=== PATIENT | male | born 1975 | race Caucasian/White ===

== ENCOUNTER 2017-07-12 13:58 | Inpatient (IN) | payer OTHER ==
[2017-07-12 16:41] VITALS: BMI 31.3
--- NOTE | 2017-07-12 17:46 | HP ---
COWS - Scale Resting Pulse: 1= IN 81-100 Sweatin= Chills/Flushing Restless Observation: 1= Difficult to Sit Still Pupil Size: 1= Pupils >than Normal Bone or Joint Aches: 1= Mild Discomfort Runny Nose/ Eye Tearin= Runny Nose/Eyes GI Upset > 30mins: 2= Nausea/Diarrhea Tremor Observation: 2= Slight Tremor Visible Yawning Observation: 1= 1-2x During Session Anxiety or Irritability: 1=Feels Anxious/Irritable Goose Flesh Skin: 0=Smooth Skin COWS Score: 13 CIWA Score - CIWA Score Nausea/Vomitin-Mild Nausea/No Vomiting Muscle Tremors: 4-Moderate,w/Arms Extend Anxiety: 3 Agitation: 3 Paroxysmal Sweats: 1-Minimal Palms Moist Orientation: 0-Oriented Tacttile Disturbances: 1-Very Mild Itch/Numbness Auditory Disturbances: 0-None Visual Disturbances: 0-None Headache: 0-None Present CIWA-Ar Total Score: 13 Admission ROS S - HPI Chief Complaint: Having heroin and alcohol withdrawal symptoms. Allergies/Adverse Reactions: Allergies Allergy/AdvReac Type Severity Reaction Status Date / Time No Known Allergies Allergy Verified 07/12/17 16:55 History of Present Illness: 42 y.o.m. here for detox from heroin and alcohol. Heroin use via IV and intranasal. Last detox 8 years ago and has been using continuously for past 3-4 years. Hx. auditory and visual hallucinations. Denies hx. black outs or seizures. Exam Limitations: No Limitations - Ebola screening Have you traveled outside of the country in the last 21 days: No Have you had contact with anyone from an Ebola affected area: No Have you been sick,other than usual withdrawal symptoms: No Do you have a fever: No - Review of Systems Constitutional: No Symptoms Reported, See HPI EENT: reports: Nose Congestion Respiratory: reports: No Symptoms reported Cardiac: reports: No Symptoms Reported GI: reports: Nausea, Abdominal cramping : reports: No Symptoms Reported Musculoskeletal: reports: No Symptoms Reported Integumentary: reports: No Symptoms Reported Neuro: reports: No Symptoms reported Endocrine: reports: No Symptoms Reported Hematology: reports: No Symptoms Reported Psychiatric: reports: Orientated x3, Agitated, Anxious (Past hx suicide attempt 10 years ago. Denies current thoughts of suicide or violent ideation.), other ( Hx bipolar disease. Hx.) Patient History - Patient Medical History Hx Anemia: No Hx Asthma: No Hx Chronic Obstructive Pulmonary Disease (COPD): No Hx Cancer: No Hx Cardiac Disorders: No Hx Congestive Heart Failure: No Hx Hypertension: No Hx Hypercholesterolemia: No Hx Pacemaker: No HX Cerebrovascular Accident: No Hx Seizures: No Hx Dementia: No Hx Diabetes: No Hx Gastrointestinal Disorders: No Hx Liver Disease: No Hx Genitourinary Disorders: No Hx Sexually Transmitted Disorders: No Hx Renal Disease (ESRD): No Hx Thyroid Disease: No Hx Human Immunodeficiency Virus (HIV): No Hx Hepatitis C: Yes Hx Depression: Yes Hx Suicide Attempt: No Hx Bipolar Disorder: Yes (Denies current thoughts of suicide or violent ideation. ) Hx Schizophrenia: No - Patient Surgical History Past Surgical History: No Hx Neurologic Surgery: No Hx Cataract Extraction: No Hx Cardiac Surgery: No Hx Lung Surgery: No Hx Breast Surgery: No Hx Breast Biopsy: No Hx Abdominal Surgery: No Hx Appendectomy: No Hx Cholecystectomy: No Hx Genitourinary Surgery: No Hx Section: No Hx Orthopedic Surgery: No Anesthesia Reaction: No - PPD History Previous Implant?: Yes Documented Results: Negative w/o proof PPD to be Administered?: Yes - Reproductive History Patient is a Female of Child Bearing Age (11 -55 yrs old): No - Smoking Cessation Smoking history: Current every day smoker Have you smoked in the past 12 months: Yes Aproximately how many cigarettes per day: 10 Hx Chewing Tobacco Use: No Initiated information on smoking cessation: Yes 'Breaking Loose' booklet given: 07/12/17 - Substance & Tx. History Hx Alcohol Use: Yes (Drinks 1-2 pints vodka daily.) Hx Substance Use: Yes Substance Use Type: Alcohol, Heroin Hx Substance Use Treatment: Yes - Substances Abused Heroin Route: Injection Frequency: Daily Amount used: 3 bags Age of first use: 24 Date of Last Use: 07/12/17 Cocaine Date of Last Use: 07/12/17 Family Disease History - Family Disease History Family Disease History: Diabetes: Father, Heart Disease: Mother Other Family History: Brother used heroin. Admission Physical Exam BHS - Vital Signs Vital Signs: Vital Signs - 24 hr 07/12/17 16:39 Temperature 97.4 F L Pulse Rate 84 Respiratory 18 Rate Blood Pressure 129/57 - Physical General Appearance: Yes: Appropriately Dressed, Mild Distress, Tremorous, Irritable, Sweating, Anxious HEENTM: Yes: Hearing grossly Normal, Normocephalic, Normal Voice, JUMANA Respiratory: Yes: Within Normal Limits, Chest Non-Tender, Normal Breath Sounds Neck: Yes: Within Normal Limits Breast: Yes: Breast Exam Deferred Cardiology: Yes: Within Normal Limits, Regular Rhythm, Regular Rate Abdominal: Yes: Within Normal Limits, Normal Bowel Sounds Genitourinary: Yes: Within Normal Limits Back: Yes: Within Normal Limits Musculoskeletal: Yes: Within Normal Limits Extremities: Yes: Within Normal Limits, Normal Range of Motion Neurological: Yes: Within Normal Limits Integumentary: Yes: Track Vargas (Track vargas antecubital areas.), Other (Healed burn lesions on (R) thumb and (R) ring finger) - Diagnostic (1) Opiate withdrawal Current Visit: Yes Status: Acute (2) Alcohol withdrawal Current Visit: Yes Status: Acute Qualifiers: Complication of substance-induced condition: uncomplicated Qualified Code(s ): F10.230 - Alcohol dependence with withdrawal, uncomplicated (3) Nicotine dependence Current Visit: Yes Status: Acute Qualifiers: Nicotine product type: cigarettes Substance use status: uncomplicated Qualified Code(s): F17.210 - Nicotine dependence, cigarettes, uncomplicated (4) Hepatitis C Current Visit: Yes Status: Chronic Comment: No treatment history (5) Bipolar disorder, unspecified Current Visit: Yes Status: Chronic Qualifiers: Current episode severity: unspecified Cleared for Admission [facility] - Detox or Rehab [facility] Level of Care: Medically Managed Detox Regimen/Protocol: Methadone/Librium [facility] Breath Alcohol Content Breath Alcohol Content: 0 Urine Drug Screen - Results Drug Screen Negative: No Urine Drug Screen Results: OPI-Opiates
[2017-07-12] MEDS ORDERED: guaiFENesin/D-METHORPHAN HB 10 ML UNIT-DOSE CUPS PO PRN (18:32)
[2017-07-12] MEDS ORDERED: MAGNESIUM HYDROX 2400MG/30ML ORAL SUSPENSION 30 ML CUP PO PRN (18:32)
[2017-07-12] MEDS ORDERED: MENTHOL/PHENOL 1 EACH UD MM PRN (18:32)
[2017-07-12] MEDS ORDERED: LOPERAMIDE HCL 2 MG CAPSULE PO PRN (18:32)
[2017-07-12] MEDS ORDERED: ACETAMINOPHEN 325 MG TABLET (FP) PO PRN (18:32)
[2017-07-12] MEDS ORDERED: chlordiazePOXIDE HCL 25 MG CAPSULE PO PRN (18:32)
[2017-07-12] MEDS ORDERED: IBUPROFEN 400 MG TABLET (FP) PO PRN (18:32)
[2017-07-12] MEDS ORDERED: P-EPHED 60MG/TRIPROLIDI 2.5MG TABLET PO PRN (18:32)
[2017-07-12] MEDS ORDERED: MAGNESIUM CITRATE 300 ML BOTTLE PO PRN (18:32)
[2017-07-12] MEDS ORDERED: NICOTINE POLACRILEX 2 MG GUM BUC PRN (18:36)
[2017-07-12] MEDS ORDERED: METHADONE HCL 10 MG TABLET (FOR DETOX USE ONLY) PO ONE ×2 (19:00→23:00)
[2017-07-12] MEDS ORDERED: MELATONIN 5 MG TABLETS PO PRN (22:00)
[2017-07-12] MEDS: THIAMINE HCL 100 MG TABLET (FP) PO SCH (22:12)
[2017-07-12] MEDS: chlordiazePOXIDE HCL 25 MG CAPSULE PO SCH (22:12)
[2017-07-12 22:42] LABS: URINE APPEARANCE SLCLOUDY; URINE BILIRUBIN NEGATIVE (<2.0 mg/dL); URINE BLOOD NEGATIVE (NEGATIVE); URINE COLOR AMBER; URINE GLUCOSE (UA) NEGATIVE (NEGATIVE); URINE KETONE NEGATIVE (NEGATIVE); URINE LEUK ESTERASE NEGATIVE (NEGATIVE); URINE NITRITE NEGATIVE (NEGATIVE); URINE PROTEIN NEGATIVE (NEGATIVE); URINE UROBILINOGEN 4.0 E.U/dl mg/dL (0.2-1.0)
[2017-07-13] MEDS: chlordiazePOXIDE HCL 25 MG CAPSULE PO SCH ×4 (05:35→22:58)
[2017-07-13] MEDS ORDERED: METHADONE HCL 10 MG TABLET (FOR DETOX USE ONLY) PO SCH (10:00)
[2017-07-13] MEDS: PRENATAL VITAMINS W/ FOLIC ACID TABLET (FP) PO SCH (10:06)
[2017-07-13] MEDS: NICOTINE 14 MG/24 HOURS TOPICAL PATCH TD SCH (10:06)
[2017-07-13 10:24] LABS: HEMATOCRIT 37.1 % (35.4-49); HEMOGLOBIN 12.5 GM/dL (11.7-16.9); MCH 30.3 pg (25.7-33.7); MCHC 33.8 g/dl (32.0-35.9); MEAN CELL VOLUME 89.6 fl (80-96); MEAN PLT VOLUME 8.7 fl (7.5-11.1); PLATELET COUNT 171 K/MM3 (134-434); RBC 4.14 M/mm3 (4.00-5.60); RDW 15.9 % (11.9-15.9); WHITE BLOOD COUNT 6.9 K/mm3 (4.0-10.0)
--- NOTE | 2017-07-13 10:26 | EKG ---
Test Reason : Blood Pressure : / mmHG Vent. Rate : 059 BPM Atrial Rate : 059 BPM P-R Int : 150 ms QRS Dur : 092 ms QT Int : 404 ms P-R-T Axes : 004 012 055 degrees QTc Int : 399 ms SINUS BRADYCARDIA OTHERWISE NORMAL ECG NO PREVIOUS ECGS AVAILABLE Confirmed by MD ANDREY, NKECHI ([id number]) on 07/13/2017 10:25:36 AM Referred By: Confirmed By:NKECHI BALDERAS MD
[2017-07-13 11:12] LABS: CHLORIDE 110 mmol/L (98-107); POTASSIUM 4.4 mmol/L (3.5-5.1); SODIUM 143 mmol/L (136-145)
[2017-07-13 11:21] LABS: ALBUMIN 3.1 g/dl (3.4-5.0); ALK PHOS 78 U/L (45-117); ANION GAP 3 (8-16); BILIRUBIN,TOTAL 0.4 mg/dL (0.2-1.0); BLOOD UREA NITROGEN 19 mg/dL (7-18); CALCIUM 8.3 mg/dL (8.5-10.1); CO2 30 mmol/L (21-32); CREATININE 0.8 mg/dL (0.7-1.3); GLUCOSE,RANDOM 75 mg/dL (74-106); SGOT/AST 17 U/L (15-37); SGPT/ALT 27 U/L (12-78); TOT PROT 6.4 g/dl (6.4-8.2)
--- NOTE | 2017-07-13 12:37 | PN ---
S CIWA - CIWA Score Nausea/Vomitin-No Nausea/No Vomiting Muscle Tremors: 3 Anxiety: 4-Mod. Anxious/Guarded Agitation: 3 Paroxysmal Sweats: No Perspiration Orientation: 2-Disoriented Date<2 days Tacttile Disturbances: 2-Mild Itch/Numbness/Burn Auditory Disturbances: 2-Mild Harshness/Frighten Visual Disturbances: 2-Mild Sensitivity Headache: 0-None Present CIWA-Ar Total Score: 18 BHS COWS - Scale Resting Pulse: 0= NC 80 or Below Sweatin= Chills/Flushing Restless Observation: 1= Difficult to Sit Still Pupil Size: 0= Normal to Room Light Bone or Joint Aches: 0= None Runny Nose/ Eye Tearin= Nasal Congestion GI Upset > 30mins: 1= Stomach Cramp Tremor Observation of Outstretched Hands: 0= None Yawning Observation: 2= >3x During Session Anxiety or Irritability: 2=Irritable/Anxious Goose Flesh Skin: 3=Piloerection COWS Score: 11 S Progress Note (SOAP) Subjective: Anxious, Stomach Cramping, Fatigue, Tremors. Objective: PATIENT A & O X 2 (UNCERTAIN ABOUT CURRENT DAY / DATE). PATIENT OBSERVED AMBULATING ON UNIT. NO ACUTE DISTRESS. 07/13/17 12:36 Vital Signs Temperature 96.8 F L 07/13/17 09:06 Pulse Rate 70 07/13/17 09:06 Respiratory Rate 18 07/13/17 09:06 Blood Pressure 101/70 07/13/17 09:06 O2 Sat by Pulse Oximetry (%) Laboratory Tests 07/12/17 07/13/17 07/13/17 19:37 07:30 07:30 WBC 6.9 RBC 4.14 Hgb 12.5 Hct 37.1 MCV 89.6 MCH 30.3 MCHC 33.8 RDW 15.9 Plt Count 171 MPV 8.7 Sodium Potassium Chloride Carbon Dioxide Anion Gap BUN Creatinine Creat Clearance w eGFR Random Glucose Calcium Total Bilirubin AST ALT Alkaline Phosphatase Total Protein Albumin Urine Color Lauren Urine Appearance Slcloudy Urine pH 5.0 Ur Specific [place] 1.029 Urine Protein Negative Urine Glucose (UA) Negative Urine Ketones Negative Urine Blood Negative Urine Nitrite Negative Urine Bilirubin Negative Urine Urobilinogen 4.0 e.u/dl Ur Leukocyte Esterase Negative RPR Titer HIV 1&2 Antibody Screen Negative HIV P24 Antigen Negative 07/13/17 07/13/17 07:30 07:30 WBC RBC Hgb Hct MCV MCH MCHC RDW Plt Count MPV Sodium 143 Potassium 4.4 Chloride 110 H Carbon Dioxide 30 Anion Gap 3 L BUN 19 H Creatinine 0.8 Creat Clearance w eGFR > 60 Random Glucose 75 Calcium 8.3 L Total Bilirubin 0.4 AST 17 ALT 27 Alkaline Phosphatase 78 Total Protein 6.4 Albumin 3.1 L Urine Color Urine Appearance Urine pH Ur Specific [place] Urine Protein Urine Glucose (UA) Urine Ketones Urine Blood Urine Nitrite Urine Bilirubin Urine Urobilinogen Ur Leukocyte Esterase RPR Titer Nonreactive HIV 1&2 Antibody Screen HIV P24 Antigen LABS NOTED. Assessment: 07/13/17 12:37 WITHDRAWAL SYMPTOMS. Plan: CONTINUE DETOX.
--- NOTE | 2017-07-13 13:05 | CONSULT ---
[facility] Psychiatric Consult - Data Date of interview: 07/13/17 Admission source: [facility] Identifying data: First admission to [facility] for this 42 y/o [place] male seeking detox treatment on for alcohol and heroin dependence.Patient is single without children,homeless,unemployed and supported on SSI benefits. Substance Abuse History: Confirmed by patient in this interview.Details in current [facility] report : Smoking history: Current every day smoker. Have you smoked in the past 12 months: Yes. Aproximately how many cigarettes per day: 10. Hx Chewing Tobacco Use: No. Initiated information on smoking cessation: Yes. 'Breaking Loose' booklet given: 07/12/17. - Substance & Tx. History. Hx Alcohol Use: Yes (Drinks 1-2 pints vodka daily.). Hx Substance Use: Yes. Substance Use Type: Alcohol, Heroin. Hx Substance Use Treatment: Yes. - Substances Abused. Heroin. Route: Injection. Frequency: Daily. Amount used: 3 bags. Age of first use: 24. Date of Last Use: 07/12/17. Cocaine. Date of Last Use: 07/12/17 Medical History: Hepatitis C. Psychiatric History: Diagnosed with Bipolar Disorder.Patient admits to a histroy of multiple psychiatric hospitalizations ([facility]).Mr Valenzuela declares that he used to be on invega and bupropion.No recall of date of last medication intake.Patient states that he has not taken his medications for " a long time ", since he was discharged from the [facility] (?) program in the [place].Denies history of suicide attempts. Physical/Sexual Abuse/Trauma History: Patient denies. Additional Comment: Urine Drug Screen Results: OPI-Opiates.Noted. Mental Status Exam - Mental Status Exam Alert and Oriented to: Time, Place, Person Cognitive Function: Grossly Intact Patient Appearance: Unkempt, Disheveled Mood: Nervous, Anxious Affect: Mood Congruent Patient Behavior: Talkative, Cooperative Speech Pattern: Clear (patient is more comfortable in irish ; loquacious) Voice Loudness: Normal Thought Process: Goal Oriented Thought Disorder: Bizarre Hallucinations: Denies Suicidal Ideation: Denies Homicidal Ideation: Denies Insight/Judgement: Poor Sleep: Well Appetite: Good Muscle strength/Tone: Normal Gait/Station: Normal Psychiatric Findings - Problem List ([place] 1, 2,3) (1) Opiate withdrawal Current Visit: Yes Status: Acute (2) Alcohol withdrawal Current Visit: Yes Status: Acute Qualifiers: Complication of substance-induced condition: uncomplicated Qualified Code(s ): F10.230 - Alcohol dependence with withdrawal, uncomplicated (3) Nicotine dependence Current Visit: Yes Status: Acute Qualifiers: Nicotine product type: cigarettes Substance use status: uncomplicated Qualified Code(s): F17.210 - Nicotine dependence, cigarettes, uncomplicated (4) Substance induced mood disorder Current Visit: Yes Status: Acute (5) Bipolar disorder Current Visit: Yes Status: Chronic Comment: As per self-report. - Initial Treatment Plan Initial Treatment Plan: Psychoeducation.Detoxification in progress.No pharmacy claims for review.No pharmacy on file.Observation.
[2017-07-13] MEDS: MAG HYDROX/AL HYDROX/SIMETH 30 ML UNIT-DOSE CUP PO PRN (18:34)
[2017-07-13] MEDS: THIAMINE HCL 100 MG TABLET (FP) PO SCH (22:58)
[2017-07-14] MEDS: chlordiazePOXIDE HCL 25 MG CAPSULE PO SCH ×3 (05:00→17:35)
[2017-07-14] MEDS: MAG HYDROX/AL HYDROX/SIMETH 30 ML UNIT-DOSE CUP PO PRN (05:01)
[2017-07-14] MEDS: METHADONE HCL 5 MG TABLET (FOR DETOX USE ONLY) PO SCH (10:15)
[2017-07-14] MEDS: NICOTINE 14 MG/24 HOURS TOPICAL PATCH TD SCH (10:15)
[2017-07-14] MEDS: PRENATAL VITAMINS W/ FOLIC ACID TABLET (FP) PO SCH (10:15)
--- NOTE | 2017-07-14 13:00 | PN ---
[facility] CIWA - CIWA Score Nausea/Vomitin-No Nausea/No Vomiting Muscle Tremors: 3 Anxiety: 4-Mod. Anxious/Guarded Agitation: 4-Moderately Restless Paroxysmal Sweats: 1-Minimal Palms Moist Orientation: 0-Oriented Tacttile Disturbances: 0-None Auditory Disturbances: 0-None Visual Disturbances: 0-None Headache: 0-None Present CIWA-Ar Total Score: 12 BHS Progress Note (SOAP) Subjective: ANXIETY,FATIGUE. Objective: 07/14/17 12:59 Vital Signs Temperature 97.4 F L 07/14/17 09:49 Pulse Rate 67 07/14/17 09:49 Respiratory Rate 20 07/14/17 09:49 Blood Pressure 118/66 07/14/17 09:49 O2 Sat by Pulse Oximetry (%) Laboratory Last Values WBC 6.9 K/mm3 (4.0-10.0) 07/13/17 07:30 RBC 4.14 M/mm3 (4.00-5.60) 07/13/17 07:30 Hgb 12.5 GM/dL (11.7-16.9) 07/13/17 07:30 Hct 37.1 % (35.4-49) 07/13/17 07:30 MCV 89.6 fl (80-96) 07/13/17 07:30 MCH 30.3 pg (25.7-33.7) 07/13/17 07:30 MCHC 33.8 g/dl (32.0-35.9) 07/13/17 07:30 RDW 15.9 % (11.9-15.9) 07/13/17 07:30 Plt Count 171 K/MM3 (134-434) 07/13/17 07:30 MPV 8.7 fl (7.5-11.1) 07/13/17 07:30 Sodium 143 mmol/L (136-145) 07/13/17 07:30 Potassium 4.4 mmol/L (3.5-5.1) 07/13/17 07:30 Chloride 110 mmol/L (98-107) H 07/13/17 07:30 Carbon Dioxide 30 mmol/L (21-32) 07/13/17 07:30 Anion Gap 3 (8-16) L 07/13/17 07:30 BUN 19 mg/dL (7-18) H 07/13/17 07:30 Creatinine 0.8 mg/dL (0.7-1.3) 07/13/17 07:30 Creat Clearance w eGFR > 60 (>60) 07/13/17 07:30 Random Glucose 75 mg/dL (74-106) 07/13/17 07:30 Calcium 8.3 mg/dL (8.5-10.1) L 07/13/17 07:30 Total Bilirubin 0.4 mg/dL (0.2-1.0) 07/13/17 07:30 AST 17 U/L (15-37) 07/13/17 07:30 ALT 27 U/L (12-78) 07/13/17 07:30 Alkaline Phosphatase 78 U/L (45-117) 07/13/17 07:30 Total Protein 6.4 g/dl (6.4-8.2) 07/13/17 07:30 Albumin 3.1 g/dl (3.4-5.0) L 07/13/17 07:30 Urine Color Lauren 07/12/17 19:37 Urine Appearance Slcloudy 07/12/17 19:37 Urine pH 5.0 (5.0-8.0) 07/12/17 19:37 Ur Specific [place] 1.029 (1.001-1.035) 07/12/17 19:37 Urine Protein Negative (NEGATIVE) 07/12/17 19:37 Urine Glucose (UA) Negative (NEGATIVE) 07/12/17 19:37 Urine Ketones Negative (NEGATIVE) 07/12/17 19:37 Urine Blood Negative (NEGATIVE) 07/12/17 19:37 Urine Nitrite Negative (NEGATIVE) 07/12/17 19:37 Urine Bilirubin Negative (<2.0 mg/dL) 07/12/17 19:37 Urine Urobilinogen 4.0 e.u/dl mg/dL (0.2-1.0) 07/12/17 19:37 Ur Leukocyte Esterase Negative (NEGATIVE) 07/12/17 19:37 RPR Titer Nonreactive (NONREACTIVE) 07/13/17 07:30 HIV 1&2 Antibody Screen Negative 07/13/17 07:30 HIV P24 Antigen Negative 07/13/17 07:30 Assessment: 07/14/17 13:00 WITHDRAWAL SX Plan: CONTINUE DETOX
[2017-07-14] MEDS: THIAMINE HCL 100 MG TABLET (FP) PO SCH (22:43)
[2017-07-14] MEDS: chlordiazePOXIDE 5 MG CAPSULE PO SCH (22:43)
[2017-07-15] MEDS: chlordiazePOXIDE 5 MG CAPSULE PO SCH ×3 (05:14→17:02)
[2017-07-15] MEDS: PRENATAL VITAMINS W/ FOLIC ACID TABLET (FP) PO SCH (10:08)
[2017-07-15] MEDS: METHADONE HCL 5 MG TABLET (FOR DETOX USE ONLY) PO SCH (10:08)
[2017-07-15] MEDS: NICOTINE 14 MG/24 HOURS TOPICAL PATCH TD SCH (10:08)
--- NOTE | 2017-07-15 13:39 | PN ---
BHS Progress Note (SOAP) Subjective: ANXIETY, SWEATS, FATIGUE. Objective: 07/15/17 13:38 Vital Signs Temperature 97.1 F L 07/15/17 13:32 Pulse Rate 72 07/15/17 13:32 Respiratory Rate 18 07/15/17 13:32 Blood Pressure 117/67 07/15/17 13:32 O2 Sat by Pulse Oximetry (%) Laboratory Last Values WBC 6.9 K/mm3 (4.0-10.0) 07/13/17 07:30 RBC 4.14 M/mm3 (4.00-5.60) 07/13/17 07:30 Hgb 12.5 GM/dL (11.7-16.9) 07/13/17 07:30 Hct 37.1 % (35.4-49) 07/13/17 07:30 MCV 89.6 fl (80-96) 07/13/17 07:30 MCH 30.3 pg (25.7-33.7) 07/13/17 07:30 MCHC 33.8 g/dl (32.0-35.9) 07/13/17 07:30 RDW 15.9 % (11.9-15.9) 07/13/17 07:30 Plt Count 171 K/MM3 (134-434) 07/13/17 07:30 MPV 8.7 fl (7.5-11.1) 07/13/17 07:30 Sodium 143 mmol/L (136-145) 07/13/17 07:30 Potassium 4.4 mmol/L (3.5-5.1) 07/13/17 07:30 Chloride 110 mmol/L (98-107) H 07/13/17 07:30 Carbon Dioxide 30 mmol/L (21-32) 07/13/17 07:30 Anion Gap 3 (8-16) L 07/13/17 07:30 BUN 19 mg/dL (7-18) H 07/13/17 07:30 Creatinine 0.8 mg/dL (0.7-1.3) 07/13/17 07:30 Creat Clearance w eGFR > 60 (>60) 07/13/17 07:30 Random Glucose 75 mg/dL (74-106) 07/13/17 07:30 Calcium 8.3 mg/dL (8.5-10.1) L 07/13/17 07:30 Total Bilirubin 0.4 mg/dL (0.2-1.0) 07/13/17 07:30 AST 17 U/L (15-37) 07/13/17 07:30 ALT 27 U/L (12-78) 07/13/17 07:30 Alkaline Phosphatase 78 U/L (45-117) 07/13/17 07:30 Total Protein 6.4 g/dl (6.4-8.2) 07/13/17 07:30 Albumin 3.1 g/dl (3.4-5.0) L 07/13/17 07:30 Urine Color Lauren 07/12/17 19:37 Urine Appearance Slcloudy 07/12/17 19:37 Urine pH 5.0 (5.0-8.0) 07/12/17 19:37 Ur Specific [place] 1.029 (1.001-1.035) 07/12/17 19:37 Urine Protein Negative (NEGATIVE) 07/12/17 19:37 Urine Glucose (UA) Negative (NEGATIVE) 07/12/17 19:37 Urine Ketones Negative (NEGATIVE) 07/12/17 19:37 Urine Blood Negative (NEGATIVE) 07/12/17 19:37 Urine Nitrite Negative (NEGATIVE) 07/12/17 19:37 Urine Bilirubin Negative (<2.0 mg/dL) 07/12/17 19:37 Urine Urobilinogen 4.0 e.u/dl mg/dL (0.2-1.0) 07/12/17 19:37 Ur Leukocyte Esterase Negative (NEGATIVE) 07/12/17 19:37 RPR Titer Nonreactive (NONREACTIVE) 07/13/17 07:30 HIV 1&2 Antibody Screen Negative 07/13/17 07:30 HIV P24 Antigen Negative 07/13/17 07:30 Assessment: 07/15/17 13:39 WITHDRAWAL SX Plan: CONTINUE DETOX
[2017-07-15] MEDS: chlordiazePOXIDE HCL 10 MG CAPSULE PO SCH (22:36)
[2017-07-15] MEDS: THIAMINE HCL 100 MG TABLET (FP) PO SCH (22:36)
[2017-07-16] MEDS: MAG HYDROX/AL HYDROX/SIMETH 30 ML UNIT-DOSE CUP PO PRN (03:10)
[2017-07-16] MEDS: chlordiazePOXIDE HCL 10 MG CAPSULE PO SCH ×2 (05:47→10:08)
[2017-07-16 09:09] VITALS: TEMP 97.6
[2017-07-16] MEDS ORDERED: METHADONE HCL 10 MG TABLET (FOR DETOX USE ONLY) PO SCH (10:00)
[2017-07-16] MEDS: NICOTINE 14 MG/24 HOURS TOPICAL PATCH TD SCH (10:08)
[2017-07-16] MEDS: PRENATAL VITAMINS W/ FOLIC ACID TABLET (FP) PO SCH (10:08)
--- NOTE | 2017-07-16 12:42 | PN ---
S Progress Note (SOAP) Subjective: Patient denies current Detox symptoms and reports that he feels well overall. Objective: PATIENT A & O X 3, OBSERVED AMBULATING ON UNIT. NO ACUTE DISTRESS. 07/16/17 12:40 Vital Signs Temperature 97.6 F 07/16/17 09:08 Pulse Rate 64 07/16/17 09:08 Respiratory Rate 18 07/16/17 09:08 Blood Pressure 108/63 07/16/17 09:08 O2 Sat by Pulse Oximetry (%) Laboratory Tests 07/12/17 07/13/17 07/13/17 19:37 07:30 07:30 WBC 6.9 RBC 4.14 Hgb 12.5 Hct 37.1 MCV 89.6 MCH 30.3 MCHC 33.8 RDW 15.9 Plt Count 171 MPV 8.7 Sodium Potassium Chloride Carbon Dioxide Anion Gap BUN Creatinine Creat Clearance w eGFR Random Glucose Calcium Total Bilirubin AST ALT Alkaline Phosphatase Total Protein Albumin Urine Color Lauren Urine Appearance Slcloudy Urine pH 5.0 Ur Specific [place] 1.029 Urine Protein Negative Urine Glucose (UA) Negative Urine Ketones Negative Urine Blood Negative Urine Nitrite Negative Urine Bilirubin Negative Urine Urobilinogen 4.0 e.u/dl Ur Leukocyte Esterase Negative RPR Titer HIV 1&2 Antibody Screen Negative HIV P24 Antigen Negative 07/13/17 07/13/17 07:30 07:30 WBC RBC Hgb Hct MCV MCH MCHC RDW Plt Count MPV Sodium 143 Potassium 4.4 Chloride 110 H Carbon Dioxide 30 Anion Gap 3 L BUN 19 H Creatinine 0.8 Creat Clearance w eGFR > 60 Random Glucose 75 Calcium 8.3 L Total Bilirubin 0.4 AST 17 ALT 27 Alkaline Phosphatase 78 Total Protein 6.4 Albumin 3.1 L Urine Color Urine Appearance Urine pH Ur Specific [place] Urine Protein Urine Glucose (UA) Urine Ketones Urine Blood Urine Nitrite Urine Bilirubin Urine Urobilinogen Ur Leukocyte Esterase RPR Titer Nonreactive HIV 1&2 Antibody Screen HIV P24 Antigen LABS NOTED. Assessment: 07/16/17 12:41 COMPLETION OF DETOX REGIMEN. Plan: PATIENT SCHEDULED FOR DISCHARGE FORM DETOX UNIT TODAY. PATIENT GOING ON [facility] ([place] FOR [place]CARE.
--- NOTE | 2017-07-16 12:44 | DS ---
[facility] Detox Discharge Summary Admission Date: 07/12/17 Discharge Date: 07/16/17 - History Present History: Alcohol Dependence, Opioid Dependence Additional Comments: PATIENT GOING TO [facility] ([place] FOR AFTERCARE. PATIENT WAS DISCHARGED FROM DETOX UNIT IN STABLE MEDICAL CONDITION. Pertinent Past History: Bipolar Disorder, Hep C, Depression, Nicotine Dependence. - Physical Exam Results Vital Signs: Vital Signs Temperature 97.6 F 07/16/17 09:08 Pulse Rate 64 07/16/17 09:08 Respiratory Rate 18 07/16/17 09:08 Blood Pressure 108/63 07/16/17 09:08 O2 Sat by Pulse Oximetry (%) Pertinent Admission Physical Exam Findings: WITHDRAWAL SYMPTOMS. Laboratory Tests 07/12/17 07/13/17 07/13/17 19:37 07:30 07:30 WBC 6.9 RBC 4.14 Hgb 12.5 Hct 37.1 MCV 89.6 MCH 30.3 MCHC 33.8 RDW 15.9 Plt Count 171 MPV 8.7 Sodium Potassium Chloride Carbon Dioxide Anion Gap BUN Creatinine Creat Clearance w eGFR Random Glucose Calcium Total Bilirubin AST ALT Alkaline Phosphatase Total Protein Albumin Urine Color Lauren Urine Appearance Slcloudy Urine pH 5.0 Ur Specific [place] 1.029 Urine Protein Negative Urine Glucose (UA) Negative Urine Ketones Negative Urine Blood Negative Urine Nitrite Negative Urine Bilirubin Negative Urine Urobilinogen 4.0 e.u/dl Ur Leukocyte Esterase Negative RPR Titer HIV 1&2 Antibody Screen Negative HIV P24 Antigen Negative 07/13/17 07/13/17 07:30 07:30 WBC RBC Hgb Hct MCV MCH MCHC RDW Plt Count MPV Sodium 143 Potassium 4.4 Chloride 110 H Carbon Dioxide 30 Anion Gap 3 L BUN 19 H Creatinine 0.8 Creat Clearance w eGFR > 60 Random Glucose 75 Calcium 8.3 L Total Bilirubin 0.4 AST 17 ALT 27 Alkaline Phosphatase 78 Total Protein 6.4 Albumin 3.1 L Urine Color Urine Appearance Urine pH Ur Specific [place] Urine Protein Urine Glucose (UA) Urine Ketones Urine Blood Urine Nitrite Urine Bilirubin Urine Urobilinogen Ur Leukocyte Esterase RPR Titer Nonreactive HIV 1&2 Antibody Screen HIV P24 Antigen LABS NOTED. - Treatment Hospital Course: Detox Protocol Followed, Detoxed Safely, Responded well, Discharged Condition Good, Rehab Referral Accepted Patient has Accepted a Rehab Referral to: [facility] ([place] . - Medication Discharge Medications: Ambulatory Orders NK [No Known Home Medication] 07/12/17 - Diagnosis (1) Alcohol withdrawal Current Visit: Yes Status: Acute Qualifiers: Complication of substance-induced condition: uncomplicated Qualified Code(s ): F10.230 - Alcohol dependence with withdrawal, uncomplicated (2) Nicotine dependence Current Visit: Yes Status: Acute Qualifiers: Nicotine product type: cigarettes Substance use status: in withdrawal Qualified Code(s): F17.213 - Nicotine dependence, cigarettes, with withdrawal (3) Opiate withdrawal Current Visit: Yes Status: Acute (4) Bipolar disorder, unspecified Current Visit: Yes Status: Chronic Qualifiers: Active/Remission status: remission status unspecified Qualified Code(s): F31.9 - Bipolar disorder, unspecified (5) Hepatitis C Current Visit: Yes Status: Chronic Qualifiers: Viral hepatitis chronicity: chronic Hepatic coma status: without hepatic coma Qualified Code(s): B18.2 - Chronic viral hepatitis C (6) Substance induced mood disorder Current Visit: Yes Status: Acute - AMA Did Patient Leave Against Medical Advice: No
[2017-07-16 13:07] VITALS: BP 109/67; PULSE 77
[2017-07-17] MEDS ORDERED: METHADONE HCL 5 MG TABLET (FOR DETOX USE ONLY) PO SCH (06:00)
== END 2017-07-16 14:30 | disposition other institution (70) | DRG 773 ==
LOC: YASAS 13:58 → Y3N 17:16
PROVIDERS: ADMIT Internal Medicine; ATTEND Internal Medicine
PROC: HZ2ZZZZ Detoxification Services for Substance Abuse Treatment (ICD-10-PCS; principal; 2017-07-12)
DX: F11.23 Opioid dependence with withdrawal (principal); F10.230 Alcohol dependence with withdrawal, uncomplicated; F17.210 Nicotine dependence, cigarettes, uncomplicated; F31.9 Bipolar disorder, unspecified; F19.24 Other psychoactive substance dependence with psychoactive substance-induced mood disorder; B18.2 Chronic viral hepatitis C; Z59.0 Homelessness
CPT/HCPCS: 36415; 71046-TC-FY; 80053; 81003; 85027; 86593; 87389; 93005; 93010

== ENCOUNTER 2017-07-16 14:44 | Inpatient (IN) | payer OTHER ==
--- NOTE | 2017-07-16 12:50 | HP ---
[facility] Rehab Assess/Revision - Admission History Admitted to Rehab from: [facility] Date of Admission to Rehab: 07/16/2017 - Vital signs Vital Signs: NOTED; STABLE. - Findings Detox History & Physical reviewed: Yes Concur with findings: Yes Comments/Additional Findings: PATIENT'S MEDICAL / MEDICATION HISTORY REVIEWED PRIOR TO DISCHARGE FROM DETOX UNIT. PATIENT WAS DISCHARGED FROM DETOX UNIT TO BE TAKEN TO REHAB UNIT IN STABLE MEDICAL CONDITION. Inpatient Rehab Admission - Initial Determination Are CD services needed?: Yes Free of communicable disease: Yes Not in need of hospitalization: Yes - Rehab Admission Criteria Previous failed treatment: Yes Comorbidities: Yes Patient is meeting Inpatient Rehab admission criteria:: Yes
[~2017-07-16 14:44] MED LIST: ACETAMINOPHEN 325 MG TABLET (FP) PO PRN; LOPERAMIDE HCL 2 MG CAPSULE PO PRN; MAGNESIUM CITRATE 300 ML BOTTLE PO PRN; MAGNESIUM HYDROX 2400MG/30ML ORAL SUSPENSION 30 ML CUP PO PRN; MENTHOL/PHENOL 1 EACH UD MM PRN; NICOTINE POLACRILEX 2 MG GUM BUC PRN; P-EPHED 60MG/TRIPROLIDI 2.5MG TABLET PO PRN; guaiFENesin/D-METHORPHAN HB 10 ML UNIT-DOSE CUPS PO PRN
[2017-07-16] MEDS: MAG HYDROX/AL HYDROX/SIMETH 30 ML UNIT-DOSE CUP PO PRN (19:31)
[2017-07-16] MEDS: traZODone HCL 50 MG TABLET (FP) PO SCH (21:34)
[2017-07-16] MEDS: THIAMINE HCL 100 MG TABLET (FP) PO SCH (21:34)
[2017-07-16] MEDS ORDERED: MELATONIN 5 MG TABLETS PO PRN (22:00)
[2017-07-17] MEDS: NICOTINE 14 MG/24 HOURS TOPICAL PATCH TD SCH (10:04)
[2017-07-17] MEDS: PRENATAL VITAMINS W/ FOLIC ACID TABLET (FP) PO SCH (10:05)
[2017-07-17] MEDS: IBUPROFEN 400 MG TABLET (FP) PO PRN (17:11)
[2017-07-17] MEDS: MAG HYDROX/AL HYDROX/SIMETH 30 ML UNIT-DOSE CUP PO PRN (17:11)
[2017-07-17] MEDS: traZODone HCL 50 MG TABLET (FP) PO SCH (21:28)
[2017-07-17] MEDS: THIAMINE HCL 100 MG TABLET (FP) PO SCH (21:28)
[2017-07-18] MEDS: NICOTINE 14 MG/24 HOURS TOPICAL PATCH TD SCH (09:56)
[2017-07-18] MEDS: PRENATAL VITAMINS W/ FOLIC ACID TABLET (FP) PO SCH (09:56)
[2017-07-18] MEDS: IBUPROFEN 400 MG TABLET (FP) PO PRN (15:46)
[2017-07-18] MEDS: MAG HYDROX/AL HYDROX/SIMETH 30 ML UNIT-DOSE CUP PO PRN (16:53)
[2017-07-18] MEDS: traZODone HCL 50 MG TABLET (FP) PO SCH (21:29)
[2017-07-18] MEDS: THIAMINE HCL 100 MG TABLET (FP) PO SCH (21:29)
[2017-07-19] MEDS: NICOTINE 14 MG/24 HOURS TOPICAL PATCH TD SCH (10:12)
[2017-07-19] MEDS: PRENATAL VITAMINS W/ FOLIC ACID TABLET (FP) PO SCH (10:12)
[2017-07-19] MEDS: MAG HYDROX/AL HYDROX/SIMETH 30 ML UNIT-DOSE CUP PO PRN (19:48)
[2017-07-19] MEDS: THIAMINE HCL 100 MG TABLET (FP) PO SCH (21:23)
[2017-07-19] MEDS: traZODone HCL 50 MG TABLET (FP) PO SCH (21:23)
[2017-07-19] MEDS: IBUPROFEN 400 MG TABLET (FP) PO PRN (22:08)
[2017-07-19] MEDS ORDERED: IBUPROFEN 400 MG TABLET (FP) PO ONE (23:24)
[2017-07-19] MEDS ORDERED: IBUPROFEN 400 MG TABLET (FP) PO PRN (23:26)
[2017-07-20] MEDS: LIDOCAINE VISCOUS 2% ORAL/TOP 20 ML UNIT-DOSE CUP MM PRN ×2 (00:18→21:41)
[2017-07-20] MEDS: NICOTINE 14 MG/24 HOURS TOPICAL PATCH TD SCH (09:55)
[2017-07-20] MEDS: PRENATAL VITAMINS W/ FOLIC ACID TABLET (FP) PO SCH (09:55)
--- NOTE | 2017-07-20 10:14 | HP ---
Psychiatrist Admission - Data Date of interview: 07/19/17 Admission source: 3N Identifying data: This is the first [facility] admission for this 42 years old single [place] male, unempoloyed on SSI, homeless Medical History: Significant for hepatitis C. Smokes 10 cigarettes daily Psychiatric History: Reports being diagnosed with Bipolar Disorder in 2007. Reports history of multiple psychiatric hospitalizations to various institutions including at [facility], [facility], [facility] and most recently in May 2017 at [facility] for aggressive behavior. Claims that he was discharged on Risperdal and Valium and referred for aftercare. He said he did not follow up with discharge instruction because he was homeless. He reports that up to year ago, he attended [facility], a program in the [place] and was prescribed Invega Sustena and Buproprion. Denies history of suicide attempts. At present, reports doing well but sleeping poorly. Denies experiencing psychotic, manic or depressive symptoms, S/H ideations Physical/Sexual Abuse/Trauma History: Denies history of emotional, physical or sexual abuse Additional Comment: Reports history of 4 previous misdemeanor arrests.Denies being on parole/probation at present Vital Signs: Vital Signs - 24 hr 07/20/17 07/20/17 03:30 06:56 Temperature 99.8 F H Pulse Rate 74 Respiratory 20 20 Rate Blood Pressure 106/68 Allergies/Adverse Reactions: Allergies Allergy/AdvReac Type Severity Reaction Status Date / Time No Known Allergies Allergy Verified 07/16/17 15:24 Date of last physical exam: 07/12/17 Concur with the findings of this exam: Yes - Substance Abuse/Tx History Hx Alcohol Use: Yes Hx Substance Use: Yes Substance Use Type: Alcohol (Started drinking alcohol at age 14, consumes one pint of liquor daily. Last drank on 07/11/17), Cocaine (Started using cocaine at age 24, consumes half a bag daily. Last used on 07/12/17), Heroin (Started using heroin at age 24, consumes 3 bags daily. Last used on 07/12/17) Hx Substance Use Treatment: Yes (One recent inpt detox @ [facility]) Mental Status Exam - Mental Status Exam Alert and Oriented to: Time, Place, Person Cognitive Function: Fair Patient Appearance: Well Groomed Mood: Hopeful, Euthymic Speech Pattern: Clear Voice Loudness: Normal Thought Process: Goal Oriented Hallucinations: Denies Suicidal Ideation: Denies Homicidal Ideation: Denies Insight/Judgement: Fair Sleep: Poorly Appetite: Good Muscle strength/Tone: Normal Psychiatric Findings - Problem List ([place] 1, 2,3) (1) Alcohol dependence Current Visit: Yes Status: Acute (2) Opioid dependence Current Visit: Yes Status: Acute (3) Cocaine dependence Current Visit: Yes Status: Acute (4) Nicotine dependence Current Visit: No Status: Chronic Qualifiers: Nicotine product type: cigarettes Substance use status: in withdrawal Qualified Code(s): F17.213 - Nicotine dependence, cigarettes, with withdrawal (5) Bipolar disorder Current Visit: No Status: Chronic Comment: As per self-report. (6) Schizoaffective disorder Current Visit: Yes Status: Ruled-out (7) Substance-induced sleep disorder Current Visit: Yes Status: Acute (8) Hepatitis C Current Visit: No Status: Chronic Qualifiers: Viral hepatitis chronicity: chronic Hepatic coma status: without hepatic coma Qualified Code(s): B18.2 - Chronic viral hepatitis C Comment: No treatment history - Initial Treatment Plan Initial Treatment Plan: 1) Start Risperdal 1 mg po BID, Cogentin 0.5 mg po BID and Melatonin 5 mg po HS prn for insomnia. 2) Monitor progress
[2017-07-20] MEDS: BENZTROPINE MESYLATE 1 MG TABLET (FP) PO SCH ×2 (12:00→21:39)
[2017-07-20] MEDS: risperiDONE 1 MG TABLET (FP) PO SCH ×2 (12:00→21:39)
[2017-07-20] MEDS ORDERED: IBUPROFEN 400 MG TABLET (FP) PO PRN (13:17)
--- NOTE | 2017-07-20 13:19 | PN ---
[facility] Progress Note Note: Patient c/o of dental pain. Patient was give Ibuprofen and Anbesol last evening with no relief. Vital Signs Temperature 99.8 F H 07/20/17 06:56 Pulse Rate 74 07/20/17 06:56 Respiratory Rate 20 07/20/17 06:56 Blood Pressure 106/68 07/20/17 06:56 O2 Sat by Pulse Oximetry (%) A/P Patient Aox3 , anxious and restless + poor dentition, multiple caries, plaque, missing teeth, dental pain, erythema on gums, no bleeding present No adventitious breath sounds Shawna heart rate and rhythm Infected dental caries Plan: Ibuprofen 800mg TID / PRN Amox 500mg BID x 7D Anbesol PRN Patient educated on the importance of dental hygiene and follow up with dentist upon discharge for continuity of care. Patient verbalize understanding. Continue to monitor
[2017-07-20] MEDS: AMOXICILLIN 500 MG CAPSULE (FP) PO SCH ×2 (13:35→21:39)
[2017-07-20] MEDS: THIAMINE HCL 100 MG TABLET (FP) PO SCH (21:39)
[2017-07-20] MEDS: traZODone HCL 50 MG TABLET (FP) PO SCH (21:39)
[2017-07-21 06:54] VITALS: BP 110/69; PULSE 69; TEMP 98
[2017-07-21] MEDS: BENZTROPINE MESYLATE 1 MG TABLET (FP) PO SCH (09:29)
[2017-07-21] MEDS: AMOXICILLIN 500 MG CAPSULE (FP) PO SCH (09:29)
[2017-07-21] MEDS: risperiDONE 1 MG TABLET (FP) PO SCH (09:29)
[2017-07-21] MEDS: PRENATAL VITAMINS W/ FOLIC ACID TABLET (FP) PO SCH (09:29)
[2017-07-21] MEDS: NICOTINE 14 MG/24 HOURS TOPICAL PATCH TD SCH (09:31)
[2017-07-21] MEDS ORDERED: PT OWN MED DRAWER 7, Y5N ONE (09:32)
--- NOTE | 2017-07-21 09:35 | PN ---
Psychiatric Progress Note Vital Signs: Vital Signs Period Temp Pulse Resp BP Sys/Wesley Pulse Ox Last 24 Hr 98.0 F 69 18-18 110/69 Date of Session: 07/21/17 Chief Complaint:: AMA Discharge Note HPI: Patient addressing Alcohol, Opioid and Cocane Dependence comoebid with Nicotine Dependence, Bipolar Disorder an Substance-Induced Sleep Disorder. ROS: Hep C Current Medications: Active Medications Generic Name Dose Route Start Last Admin Trade Name Freq PRN Reason Stop Dose Admin Acetaminophen 650 mg 07/16/17 12:46 Tylenol - PO Q4H PRN FEVER Al Hydroxide/Mg Hydroxide 30 ml 07/16/17 12:46 07/19/17 19:48 Mylanta Oral Suspension - PO 30 ml Q6H PRN Administration DYSPEPSIA Amoxicillin 500 mg 07/20/17 14:00 07/20/17 21:39 Amoxicillin - PO 500 mg BID JYOTI Administration Benztropine Mesylate 0.5 mg 07/20/17 10:45 07/20/17 21:39 Cogentin - PO 0.5 mg BID JYOTI Administration Eucalyptus/Menthol/Phenol/Sorbitol 1 each 07/16/17 12:46 Cepastat Lozenge - MM Q4H PRN SORE THROAT Guaifenesin 10 ml 07/16/17 12:46 Robitussin Dm - PO Q6H PRN COUGH Ibuprofen 800 mg 07/20/17 13:17 07/20/17 13:35 Motrin - PO 800 mg Q8H PRN Administration FEVER Lidocaine HCl 20 ml 07/19/17 23:25 07/20/17 21:41 Xylocaine 2% Viscous Oral - MM 20 ml Q6HPO PRN Administration ORAL PAIN/MOUTH SORES Loperamide HCl 4 mg 07/16/17 12:46 Imodium - PO Q6H PRN DIARRHEA Magnesium Citrate 300 ml 07/16/17 12:46 Citroma - PO Q48H PRN CONSTIPATION Magnesium Hydroxide 30 ml 07/16/17 12:46 07/17/17 04:41 Milk Of Magnesia - PO 30 ml DAILY PRN Administration CONSTIPATION Melatonin 5 mg 07/16/17 22:00 Melatonin PO HS PRN INSOMNIA Nicotine 14 mg 07/17/17 10:00 07/20/17 09:55 Nicoderm Patch - TD Not Given DAILY JYOTI Nicotine Polacrilex 2 mg 07/16/17 12:46 Nicorette Gum - BUC Q2H PRN NICOTINE REPLACEMENT RX Multivit/Folic Acid/Iron 1 tab 07/17/17 10:00 07/20/17 09:55 Vitamins (Sjr) - PO 1 tab DAILY JYOTI Administration Pseudoephedrine/Triprolidine 1 combo 07/16/17 12:46 Actifed - PO TID PRN NASAL CONGESTION Risperidone 1 mg 07/20/17 11:00 07/20/17 21:39 Risperdal - PO 1 mg BID JYOTI Administration Thiamine HCl 100 mg 07/16/17 22:00 07/20/17 21:39 Vitamin B1 - PO 100 mg HS JYOTI Administration Trazodone HCl 50 mg 07/16/17 22:00 07/20/17 21:39 Desyrel - PO 50 mg HS JYOTI Administration Current Side Effect: No Lab tests ordered: Yes Lab tests reviewed: Yes Provider note:: Patient does not want to complete this program. He wants to leave against medical advice today saying:" I don't need that help. I have friends that need that help more than me" He is determined to leave despite encouragement to stay and complete the program. Scripts for 30 days supply of Risperdal 1 mg po BID and Cogentin 0.5 mg po BID are electronically transmitted to [facility] at [address] [place] [address]. He is stable for leaving against medical advice Total face to face time:: 25 Mental Status Exam - Mental Status Exam Alert and Oriented to: Time, Place, Person Cognitive Function: Fair Patient Appearance: Well Groomed Mood: Hopeful, Euthymic Affect: Appropriate Patient Behavior: Cooperative Speech Pattern: Clear Voice Loudness: Normal Thought Process: Intact, Goal Oriented Thought Disorder: Not Present Hallucinations: Denies Suicidal Ideation: Denies Homicidal Ideation: Denies Insight/Judgement: Poor Sleep: Fair Appetite: Good Muscle strength/Tone: Normal Gait/Station: Normal Psychiatric Treatment Plan - Problem List (1) Alcohol dependence Current Visit: Yes (2) Opioid dependence Current Visit: Yes Qualifiers: Substance use status: uncomplicated Qualified Code(s): F11.20 - Opioid dependence, uncomplicated (3) Cocaine dependence Current Visit: Yes (4) Nicotine dependence Current Visit: No Qualifiers: Nicotine product type: cigarettes Substance use status: in withdrawal Qualified Code(s): F17.213 - Nicotine dependence, cigarettes, with withdrawal (5) Bipolar disorder Current Visit: No Comment: As per self-report. (6) Schizoaffective disorder Current Visit: Yes (7) Substance-induced sleep disorder Current Visit: Yes (8) Hepatitis C Current Visit: No Qualifiers: Viral hepatitis chronicity: chronic Hepatic coma status: without hepatic coma Qualified Code(s): B18.2 - Chronic viral hepatitis C Comment: No treatment history Initial treatment plan: Patient is discharged AMA
== END 2017-07-21 09:45 | disposition left against medical advice (07) | DRG 770 ==
LOC: YASAS 14:44 → Y3W 14:46
PROVIDERS: ADMIT Psychiatry & Neurology Psychiatry; ATTEND Psychiatry & Neurology Psychiatry
PROC: HZ42ZZZ Group Counseling for Substance Abuse Treatment, Cognitive-Behavioral (ICD-10-PCS; principal; 2017-07-16)
DX: F11.20 Opioid dependence, uncomplicated (principal); F10.20 Alcohol dependence, uncomplicated; F14.20 Cocaine dependence, uncomplicated; F17.213 Nicotine dependence, cigarettes, with withdrawal; F31.9 Bipolar disorder, unspecified; F25.9 Schizoaffective disorder, unspecified; F19.282 Other psychoactive substance dependence with psychoactive substance-induced sleep disorder; B18.2 Chronic viral hepatitis C; K02.9 Dental caries, unspecified; Z59.0 Homelessness
CPT/HCPCS: J2794

== ENCOUNTER 2017-10-25 15:32 | Inpatient (IN) | payer OTHER ==
[2017-10-25 16:03] VITALS: BMI 30.1
--- NOTE | 2017-10-25 18:21 | HP ---
COWS - Scale Resting Pulse: 0= [place] 80 or Below Sweatin= Chills/Flushing Restless Observation: 1= Difficult to Sit Still Pupil Size: 1= Pupils >than Normal Bone or Joint Aches: 1= Mild Discomfort Runny Nose/ Eye Tearin= Runny Nose/Eyes GI Upset > 30mins: 3= Vomiting/Diarrhea Tremor Observation: 1= Tremor [place], Not Seen Yawning Observation: 1= 1-2x During Session Anxiety or Irritability: 2=Irritable/Anxious Goose Flesh Skin: 3=Piloerection COWS Score: 16 Admission ROS S - [facility] Chief Complaint: opioid withdrawal symptoms Allergies/Adverse Reactions: Allergies Allergy/AdvReac Type Severity Reaction Status Date / Time No Known Allergies Allergy Verified 07/16/17 15:24 History of Present Illness: 42 yo male with of nicotine, IV heroin dependence is here seeking detox. Last detox [facility] 07/12/17 -07/16/17. PMHX: Hep C, bipolar, anxiety, schizophrenia. Non- adherent with psychiatric medications. Reports occasional period of auditory hallucinations, currently denies auditory hallucinations at this time. Denies social / homicidal ideation or hx of suicide attempt. Reports no significant of sobriety., Hx of OD x 5x, with last episode 2007. Exam Limitations: No Limitations - Ebola screening Have you traveled outside of the country in the last 21 days: No (N) Have you had contact with anyone from an Ebola affected area: No Have you been sick,other than usual withdrawal symptoms: No Do you have a fever: No - Review of Systems Constitutional: Chills, Changes in sleep, Unintentional Wgt. Loss EENT: reports: No Symptoms Reported Respiratory: reports: Cough Cardiac: reports: No Symptoms Reported GI: reports: Constipated, Nausea, Poor Appetite, Poor Fluid Intake, Vomiting, Abdominal cramping : reports: No Symptoms Reported Musculoskeletal: reports: Back Pain Integumentary: reports: No Symptoms Reported Neuro: reports: Headache Endocrine: reports: No Symptoms Reported Hematology: reports: No Symptoms Reported Psychiatric: reports: Orientated x3, Agitated, Anxious Other Systems: Reviewed and Negative Patient History - Patient Medical History Hx Anemia: No Hx Asthma: No Hx Chronic Obstructive Pulmonary Disease (COPD): No Hx Cancer: No Hx Cardiac Disorders: No Hx Congestive Heart Failure: No Hx Hypertension: No Hx Hypercholesterolemia: No Hx Pacemaker: No HX Cerebrovascular Accident: No Hx Seizures: No Hx Dementia: No Hx Diabetes: No Hx Gastrointestinal Disorders: Yes (GERD) Hx Liver Disease: No Hx Genitourinary Disorders: No Hx Sexually Transmitted Disorders: No Hx Renal Disease (ESRD): No Hx Thyroid Disease: No Hx Human Immunodeficiency Virus (HIV): No Hx Hepatitis C: Yes Hx Depression: Yes Hx Suicide Attempt: No Hx Bipolar Disorder: Yes (Denies current thoughts of suicide or violent ideation. ) Hx Schizophrenia: No - Patient Surgical History Past Surgical History: No Hx Neurologic Surgery: No Hx Cataract Extraction: No Hx Cardiac Surgery: No Hx Lung Surgery: No Hx Breast Surgery: No Hx Breast Biopsy: No Hx Abdominal Surgery: No Hx Appendectomy: No Hx Cholecystectomy: No Hx Genitourinary Surgery: No Hx Section: No Hx Orthopedic Surgery: No Anesthesia Reaction: No - PPD History Previous Implant?: No Documented Results: Negative w/proof Implanted On Prior [facility] Admission?: No Date: 07/14/17 Results: 0 mm PPD to be Administered?: No - Smoking Cessation Smoking history: Current every day smoker Have you smoked in the past 12 months: Yes Aproximately how many cigarettes per day: 10 Hx Chewing Tobacco Use: No Initiated information on smoking cessation: Yes 'Breaking Loose' booklet given: 10/25/17 - Substance & Tx. History Hx Alcohol Use: Yes Hx Substance Use: Yes Substance Use Type: Heroin Hx Substance Use Treatment: Yes (Last detox [facility] 07/12/17 -07/16/17) - Substances Abused Heroin Route: Injection Frequency: Daily Amount used: 5 bags Age of first use: 24 Date of Last Use: 10/25/17 Family Disease History - Family Disease History Family Disease History: Diabetes: Father, Heart Disease: Mother Admission Physical Exam BHS - Vital Signs Vital Signs: Vital Signs - 24 hr 10/25/17 16:01 Temperature 97.7 F Pulse Rate 73 Respiratory 16 Rate Blood Pressure 140/74 - Physical General Appearance: Yes: Disheveled, Moderate Distress, Obese, Irritable, Anxious, Other (malodorous, unkempt) HEENTM: Yes: Rhinorrhea, Other (poor dentition) Respiratory: Yes: Chest Non-Tender, Lungs Clear, No Respiratory Distress, No Accessory Muscle Use, Wheezing Neck: Yes: Within Normal Limits Breast: Yes: Breast Exam Deferred Cardiology: Yes: Regular Rhythm, Regular Rate Abdominal: Yes: Normal Bowel Sounds, Non Tender, Soft, Protuberent Genitourinary: Yes: Within Normal Limits Back: Yes: Normal Inspection Musculoskeletal: Yes: full range of Motion, Gait Steady, Pelvis Stable, Back pain Extremities: Yes: Normal Capillary Refill, Normal Inspection, Normal Range of Motion, Non-Tender Neurological: Yes: circulation clerk II-XII NML intact, Fully Oriented, Alert, Motor Strength 5/5, Normal Mood/Affect, Depressed Affect Integumentary: Yes: Normal Color, Warm, Diaphoresis Lymphatic: Yes: Within Normal Limits - Diagnostic (1) Psychiatric disorder Current Visit: Yes Status: Acute (2) Wheezing Current Visit: Yes Status: Acute (3) Opioid dependence with withdrawal Current Visit: Yes Status: Acute (4) Hepatitis C Current Visit: Yes Status: Chronic Qualifiers: Viral hepatitis chronicity: chronic Hepatic coma status: without hepatic coma Qualified Code(s): B18.2 - Chronic viral hepatitis C Comment: No treatment history (5) Nicotine dependence Current Visit: Yes Status: Chronic Qualifiers: Nicotine product type: cigarettes Substance use status: in withdrawal Qualified Code(s): F17.213 - Nicotine dependence, cigarettes, with withdrawal Cleared for Admission [facility] - Detox or Rehab [facility] Level of Care: Medically Managed Detox Regimen/Protocol: Librium [facility] Breath Alcohol Content Breath Alcohol Content: 0 Urine Drug Screen - Results Drug Screen Negative: No Urine Drug Screen Results: OPI-Opiates
[2017-10-25] MEDS ORDERED: LOPERAMIDE HCL 2 MG CAPSULE PO PRN (18:27)
[2017-10-25] MEDS ORDERED: MAGNESIUM HYDROX 2400MG/30ML ORAL SUSPENSION 30 ML CUP PO PRN (18:27)
[2017-10-25] MEDS ORDERED: ACETAMINOPHEN 325 MG TABLET (FP) PO PRN (18:27)
[2017-10-25] MEDS ORDERED: guaiFENesin/D-METHORPHAN HB 10 ML UNIT-DOSE CUPS PO PRN (18:27)
[2017-10-25] MEDS ORDERED: P-EPHED 60MG/TRIPROLIDI 2.5MG TABLET PO PRN (18:27)
[2017-10-25] MEDS ORDERED: NICOTINE POLACRILEX 2 MG GUM BC PRN (18:27)
[2017-10-25] MEDS ORDERED: MENTHOL/PHENOL 1 EACH UD MM PRN (18:27)
[2017-10-25] MEDS ORDERED: MAGNESIUM CITRATE 300 ML BOTTLE PO PRN (18:27)
[2017-10-25] MEDS ORDERED: ALBUTEROL SO4 2.5/IPRATROPIUM 0.5 INH SOL 3 ML VIAL.NEB. NEB PRN (18:35)
[2017-10-25] MEDS ORDERED: METHADONE HCL 10 MG TABLET (FOR DETOX USE ONLY) PO ONE ×2 (20:15→23:00)
[2017-10-25] MEDS ORDERED: MELATONIN 5 MG TABLETS PO PRN (22:00)
[2017-10-25] MEDS: THIAMINE HCL 100 MG TABLET (FP) PO SCH (22:33)
[2017-10-26 02:13] LABS: URINE APPEARANCE CLEAR; URINE COLOR AMBER; URINE GLUCOSE (UA) NEGATIVE (NEGATIVE); URINE KETONE NEGATIVE (NEGATIVE); URINE LEUK ESTERASE NEGATIVE (NEGATIVE); URINE NITRITE NEGATIVE (NEGATIVE); URINE PROTEIN NEGATIVE (NEGATIVE); URINE UROBILINOGEN 4.0 E.U/dl mg/dL (0.2-1.0)
[2017-10-26] MEDS ORDERED: METHADONE HCL 10 MG TABLET (FOR DETOX USE ONLY) PO ONE (10:00)
[2017-10-26] MEDS: NICOTINE 14 MG/24 HOURS TOPICAL PATCH TD SCH (10:09)
[2017-10-26] MEDS: diazePAM 5 MG TABLET PO PRN ×2 (10:09→15:21)
[2017-10-26] MEDS: PRENATAL VITAMINS W/ FOLIC ACID TABLET (FP) PO SCH (10:09)
[2017-10-26 11:02] LABS: HEMATOCRIT 38.2 % (35.4-49); HEMOGLOBIN 12.9 GM/dL (11.7-16.9); MCH 29.7 pg (25.7-33.7); MCHC 33.8 g/dl (32.0-35.9); MEAN CELL VOLUME 87.7 fl (80-96); MEAN PLT VOLUME 9.1 fl (7.5-11.1); PLATELET COUNT 192 K/MM3 (134-434); RBC 4.36 M/mm3 (4.00-5.60)
[2017-10-26 11:16] LABS: ANION GAP 5 (8-16); BLOOD UREA NITROGEN 20 mg/dL (7-18); CHLORIDE 107 mmol/L (98-107); CO2 30 mmol/L (21-32); CREATININE 0.9 mg/dL (0.7-1.3); GLUCOSE,RANDOM 88 mg/dL (74-106); SGOT/AST 8 U/L (15-37); SGPT/ALT 20 U/L (12-78); SODIUM 142 mmol/L (136-145)
[2017-10-26] MEDS ORDERED: ALBUTEROL SO4 8 GM HFA INHALER IH PRN (11:16)
[2017-10-26 11:18] LABS: ALK PHOS 94 U/L (45-117); BILIRUBIN,TOTAL 0.3 mg/dL (0.2-1.0); TOT PROT 6.9 g/dl (6.4-8.2)
[2017-10-26] MEDS: hydrOXYzine PAMOATE 50 MG CAPSULE (FP) PO PRN (12:27)
--- NOTE | 2017-10-26 14:04 | PN ---
BHS COWS - Scale Resting Pulse: 0= [place] 80 or Below Sweatin= Chills/Flushing Restless Observation: 3= Extraneous Movement Pupil Size: 1= Pupils >than Normal Bone or Joint Aches: 2= Severe Diffuse Aches Runny Nose/ Eye Tearin= Runny Nose/Eyes GI Upset > 30mins: 2= Nausea/Diarrhea Tremor Observation of Outstretched Hands: 2= Slight Tremor Visible Yawning Observation: 1= 1-2x During Session Anxiety or Irritability: 2=Irritable/Anxious Goose Flesh Skin: 0=Smooth Skin COWS Score: 16 BHS Progress Note (SOAP) Subjective: alert,irritable,anxious,interrupted sleep,has voice hallucination, no suicidal,no homicidal history of bipolar disorder,no medication for last 8 moths Objective: 10/26/17 14:01 Vital Signs Temperature 97.0 F L 10/26/17 13:13 Pulse Rate 63 10/26/17 13:13 Respiratory Rate 18 10/26/17 13:13 Blood Pressure 120/68 10/26/17 13:13 O2 Sat by Pulse Oximetry (%) ekg nsr,normal ecg qt/qtc 434/444 no chest pain,no sob,no dizziness Laboratory Last Values WBC 7.0 K/mm3 (4.0-10.0) 10/26/17 07:00 RBC 4.36 M/mm3 (4.00-5.60) 10/26/17 07:00 Hgb 12.9 GM/dL (11.7-16.9) 10/26/17 07:00 Hct 38.2 % (35.4-49) 10/26/17 07:00 MCV 87.7 fl (80-96) 10/26/17 07:00 MCH 29.7 pg (25.7-33.7) 10/26/17 07:00 MCHC 33.8 g/dl (32.0-35.9) 10/26/17 07:00 RDW 16.0 % (11.9-15.9) H 10/26/17 07:00 Plt Count 192 K/MM3 (134-434) 10/26/17 07:00 MPV 9.1 fl (7.5-11.1) 10/26/17 07:00 Sodium 142 mmol/L (136-145) 10/26/17 07:00 Potassium 4.0 mmol/L (3.5-5.1) 10/26/17 07:00 Chloride 107 mmol/L (98-107) 10/26/17 07:00 Carbon Dioxide 30 mmol/L (21-32) 10/26/17 07:00 Anion Gap 5 (8-16) L 10/26/17 07:00 BUN 20 mg/dL (7-18) H 10/26/17 07:00 Creatinine 0.9 mg/dL (0.7-1.3) 10/26/17 07:00 Creat Clearance w eGFR > 60 (>60) 10/26/17 07:00 Random Glucose 88 mg/dL (74-106) 10/26/17 07:00 Calcium 9.0 mg/dL (8.5-10.1) 10/26/17 07:00 Total Bilirubin 0.3 mg/dL (0.2-1.0) 10/26/17 07:00 AST 8 U/L (15-37) L D 10/26/17 07:00 ALT 20 U/L (12-78) D 10/26/17 07:00 Alkaline Phosphatase 94 U/L (45-117) 10/26/17 07:00 Total Protein 6.9 g/dl (6.4-8.2) 10/26/17 07:00 Albumin 3.0 g/dl (3.4-5.0) L 10/26/17 07:00 Urine Color Lauren 10/25/17 23:12 Urine Appearance Clear 10/25/17 23:12 Urine pH 6.0 (5.0-8.0) 10/25/17 23:12 Ur Specific [place] 1.028 (1.001-1.035) 10/25/17 23:12 Urine Protein Negative (NEGATIVE) 10/25/17 23:12 Urine Glucose (UA) Negative (NEGATIVE) 10/25/17 23:12 Urine Ketones Negative (NEGATIVE) 10/25/17 23:12 Urine Blood Negative (NEGATIVE) 10/25/17 23:12 Urine Nitrite Negative (NEGATIVE) 10/25/17 23:12 Urine Bilirubin 2.0 (<2.0 mg/dL) 10/25/17 23:12 Urine Urobilinogen 4.0 e.u/dl mg/dL (0.2-1.0) 10/25/17 23:12 Ur Leukocyte Esterase Negative (NEGATIVE) 10/25/17 23:12 HIV 1&2 Antibody Screen Negative 10/26/17 07:00 HIV P24 Antigen Negative 10/26/17 07:00 10/26/17 14:03 rpr pending Assessment: 10/26/17 14:03 withdrawal symptom Plan: continue detox,psychiatric evaluation
--- NOTE | 2017-10-26 14:43 | CONSULT ---
[facility] Psychiatric Consult - Data Date of interview: 10/26/17 Admission source: Self-referred Identifying data: Mr Valenzuela is a 42 years old single [place] male, unemployed on SSI, homeless seking detox treatment for heroin Substance Abuse History: Reports history of heroin use. Refer to addiction counselor's summry for further information Medical History: Significant for bronchial asthma and hepatitis C. Smokes 10 cigarettes daily Psychiatric History: Patient is known to staff writer from previous admission in this faclity back in June 2017. He reported being diagnosed with Bipolar Disorder in 2007. Reports history of multiple psychiatric hospitalizations to various institutions including at [facility], [facility], [facility] and most recently in May 2017 at [facility] for aggressive behavior. He reported that up to year ago, he attended [facility], a program in the [place] and was prescribed Invega Sustena and Buproprion. While in this facility for inpatient rehab in June 2017, he was prescribed Risperdal 1 mg po BID and Cogentin 0.5 mg po BID. Reports non adeherence to OPD care and medications since discharge. Denies history of suicide attempts. At present, reports doing well but sleeping poorly. Denies experiencing psychotic, manic or depressive symptoms, S/H ideations Physical/Sexual Abuse/Trauma History: Denies history of emotional, physical or sexual abuse Additional Comment: Reports history of 4 previous misdemeanor arrests.Denies being on parole/probation at present Mental Status Exam - Mental Status Exam Alert and Oriented to: Time, Place, Person Cognitive Function: Fair Patient Appearance: Well Groomed Mood: Hopeful, Euthymic Affect: Appropriate Patient Behavior: Cooperative Speech Pattern: Clear Voice Loudness: Normal Thought Process: Intact, Goal Oriented Thought Disorder: Not Present Hallucinations: Denies Suicidal Ideation: Denies Homicidal Ideation: Denies Insight/Judgement: Fair Sleep: Poorly Appetite: Good Muscle strength/Tone: Normal Gait/Station: Normal Psychiatric Findings - Problem List ([place] 1, 2,3) (1) Bipolar disorder Current Visit: Yes Status: Chronic (2) Schizoaffective disorder Current Visit: Yes Status: Ruled-out (3) Opioid dependence with withdrawal Current Visit: Yes Status: Acute (4) Nicotine dependence Current Visit: Yes Status: Chronic Qualifiers: Nicotine product type: cigarettes Substance use status: in withdrawal Qualified Code(s): F17.213 - Nicotine dependence, cigarettes, with withdrawal (5) Asthma Current Visit: Yes Status: Acute (6) Hepatitis C Current Visit: Yes Status: Chronic Qualifiers: Viral hepatitis chronicity: chronic Hepatic coma status: without hepatic coma Qualified Code(s): B18.2 - Chronic viral hepatitis C Comment: No treatment history - Initial Treatment Plan Initial Treatment Plan: 1) Start Risperdal 1 mg po BID, Cogentin 0.5 mg po BID and Trazadone 50 mg po HS. 2) Continue inpatient detoxification
[2017-10-26] MEDS ORDERED: risperiDONE 1 MG TABLET (FP) PO ONE (15:30)
--- NOTE | 2017-10-26 16:29 | EKG ---
Test Reason : Blood Pressure : / mmHG Vent. Rate : 069 BPM Atrial Rate : 069 BPM P-R Int : 128 ms QRS Dur : 088 ms QT Int : 408 ms P-R-T Axes : -40 035 056 degrees QTc Int : 437 ms UNUSUAL P AXIS, POSSIBLE ECTOPIC ATRIAL RHYTHM WITH UNDETERMINED RHYTHM IRREGULARITY ABNORMAL ECG WHEN COMPARED WITH ECG OF 25-OCT-2017 20:28, NO SIGNIFICANT CHANGE WAS FOUND Confirmed by Hnasel Galvan MD ([id number]) on 10/26/2017 4:29:00 PM Referred By: Confirmed By:Hansel Galvan MD
--- NOTE | 2017-10-26 16:29 | EKG ---
Test Reason : Blood Pressure : / mmHG Vent. Rate : 068 BPM Atrial Rate : 068 BPM P-R Int : 138 ms QRS Dur : 086 ms QT Int : 402 ms P-R-T Axes : -42 039 059 degrees QTc Int : 427 ms UNUSUAL P AXIS, POSSIBLE ECTOPIC ATRIAL RHYTHM ABNORMAL ECG WHEN COMPARED WITH ECG OF 12-JUL-2017 19:42, ECTOPIC ATRIAL RHYTHM HAS REPLACED SINUS RHYTHM T WAVE AMPLITUDE HAS DECREASED IN LATERAL LEADS Confirmed by Hansel Galvan MD ([id number]) on 10/26/2017 4:29:01 PM Referred By: Confirmed By:Hansel Galvan MD
[2017-10-26] MEDS: risperiDONE 1 MG TABLET (FP) PO SCH (22:34)
[2017-10-26] MEDS: traZODone HCL 50 MG TABLET (FP) PO SCH (22:34)
[2017-10-26] MEDS: THIAMINE HCL 100 MG TABLET (FP) PO SCH (22:34)
[2017-10-26] MEDS: BENZTROPINE MESYLATE 1 MG TABLET (FP) PO SCH (22:35)
[2017-10-27] MEDS: diazePAM 5 MG TABLET PO PRN ×2 (06:48→22:27)
[2017-10-27] MEDS: IBUPROFEN 400 MG TABLET (FP) PO PRN ×2 (08:37→18:44)
[2017-10-27] MEDS ORDERED: METHADONE HCL 5 MG TABLET (FOR DETOX USE ONLY) PO ONE (10:00)
[2017-10-27] MEDS: BENZTROPINE MESYLATE 1 MG TABLET (FP) PO SCH ×2 (10:10→22:24)
[2017-10-27] MEDS: risperiDONE 1 MG TABLET (FP) PO SCH ×2 (10:10→22:24)
[2017-10-27] MEDS: NICOTINE 14 MG/24 HOURS TOPICAL PATCH TD SCH (10:10)
[2017-10-27] MEDS: PRENATAL VITAMINS W/ FOLIC ACID TABLET (FP) PO SCH (10:10)
--- NOTE | 2017-10-27 10:44 | PN ---
[facility]HS COWS - Scale Resting Pulse: 0= [place] 80 or Below Sweatin= Chills/Flushing Restless Observation: 3= Extraneous Movement Pupil Size: 1= Pupils >than Normal Bone or Joint Aches: 2= Severe Diffuse Aches Runny Nose/ Eye Tearin= Runny Nose/Eyes GI Upset > 30mins: 2= Nausea/Diarrhea Tremor Observation of Outstretched Hands: 2= Slight Tremor Visible Yawning Observation: 1= 1-2x During Session Anxiety or Irritability: 2=Irritable/Anxious Goose Flesh Skin: 0=Smooth Skin COWS Score: 16 S Progress Note (SOAP) Subjective: alert,irritable,anxious,interrupted sleep,pain in the body Objective: 10/27/17 10:42 Vital Signs Temperature 96.3 F L 10/27/17 09:22 Pulse Rate 64 10/27/17 09:22 Respiratory Rate 20 10/27/17 09:22 Blood Pressure 122/85 10/27/17 09:22 O2 Sat by Pulse Oximetry (%) 10/27/17 10:42 Laboratory Last Values WBC 7.0 K/mm3 (4.0-10.0) 10/26/17 07:00 RBC 4.36 M/mm3 (4.00-5.60) 10/26/17 07:00 Hgb 12.9 GM/dL (11.7-16.9) 10/26/17 07:00 Hct 38.2 % (35.4-49) 10/26/17 07:00 MCV 87.7 fl (80-96) 10/26/17 07:00 MCH 29.7 pg (25.7-33.7) 10/26/17 07:00 MCHC 33.8 g/dl (32.0-35.9) 10/26/17 07:00 RDW 16.0 % (11.9-15.9) H 10/26/17 07:00 Plt Count 192 K/MM3 (134-434) 10/26/17 07:00 MPV 9.1 fl (7.5-11.1) 10/26/17 07:00 Sodium 142 mmol/L (136-145) 10/26/17 07:00 Potassium 4.0 mmol/L (3.5-5.1) 10/26/17 07:00 Chloride 107 mmol/L (98-107) 10/26/17 07:00 Carbon Dioxide 30 mmol/L (21-32) 10/26/17 07:00 Anion Gap 5 (8-16) L 10/26/17 07:00 BUN 20 mg/dL (7-18) H 10/26/17 07:00 Creatinine 0.9 mg/dL (0.7-1.3) 10/26/17 07:00 Creat Clearance w eGFR > 60 (>60) 10/26/17 07:00 Random Glucose 88 mg/dL (74-106) 10/26/17 07:00 Calcium 9.0 mg/dL (8.5-10.1) 10/26/17 07:00 Total Bilirubin 0.3 mg/dL (0.2-1.0) 10/26/17 07:00 AST 8 U/L (15-37) L D 10/26/17 07:00 ALT 20 U/L (12-78) D 10/26/17 07:00 Alkaline Phosphatase 94 U/L (45-117) 10/26/17 07:00 Total Protein 6.9 g/dl (6.4-8.2) 10/26/17 07:00 Albumin 3.0 g/dl (3.4-5.0) L 10/26/17 07:00 Urine Color Lauren 10/25/17 23:12 Urine Appearance Clear 10/25/17 23:12 Urine pH 6.0 (5.0-8.0) 10/25/17 23:12 Ur Specific [place] 1.028 (1.001-1.035) 10/25/17 23:12 Urine Protein Negative (NEGATIVE) 10/25/17 23:12 Urine Glucose (UA) Negative (NEGATIVE) 10/25/17 23:12 Urine Ketones Negative (NEGATIVE) 10/25/17 23:12 Urine Blood Negative (NEGATIVE) 10/25/17 23:12 Urine Nitrite Negative (NEGATIVE) 10/25/17 23:12 Urine Bilirubin 2.0 (<2.0 mg/dL) 10/25/17 23:12 Urine Urobilinogen 4.0 e.u/dl mg/dL (0.2-1.0) 10/25/17 23:12 Ur Leukocyte Esterase Negative (NEGATIVE) 10/25/17 23:12 RPR Titer Nonreactive (NONREACTIVE) 10/26/17 07:00 HIV 1&2 Antibody Screen Negative 10/26/17 07:00 HIV P24 Antigen Negative 10/26/17 07:00 Assessment: 10/27/17 10:43 withdrawal symptom Plan: continue detox,seen by dr ellis yesterday
--- NOTE | 2017-10-27 15:27 | PN ---
S Progress Note Note: injury right 5th toe ,banged against the door, no deformity,pain in the right 5th toe, ambulation without difficulty treatment motrin 400 mgs po q 6hrs prn for pain x ray right 5th toe close monitoring
[2017-10-27] MEDS: MAG HYDROX/AL HYDROX/SIMETH 30 ML UNIT-DOSE CUP PO PRN (18:25)
[2017-10-27] MEDS: THIAMINE HCL 100 MG TABLET (FP) PO SCH (22:24)
[2017-10-27] MEDS: traZODone HCL 50 MG TABLET (FP) PO SCH (22:24)
[2017-10-28] MEDS: diazePAM 5 MG TABLET PO PRN ×2 (05:20→17:43)
[2017-10-28] MEDS ORDERED: METHADONE HCL 5 MG TABLET (FOR DETOX USE ONLY) PO ONE (10:00)
[2017-10-28] MEDS: risperiDONE 1 MG TABLET (FP) PO SCH ×2 (10:48→22:29)
[2017-10-28] MEDS: PRENATAL VITAMINS W/ FOLIC ACID TABLET (FP) PO SCH (10:48)
[2017-10-28] MEDS: NICOTINE 14 MG/24 HOURS TOPICAL PATCH TD SCH (10:48)
[2017-10-28] MEDS: BENZTROPINE MESYLATE 1 MG TABLET (FP) PO SCH ×2 (10:49→22:32)
--- NOTE | 2017-10-28 11:02 | PN ---
BHS Progress Note (SOAP) Subjective: alert,irritable,anxious,interrupted sleep,pain in the body Objective: 10/28/17 11:02 Vital Signs Temperature 97.7 F 10/28/17 10:27 Pulse Rate 82 10/28/17 10:27 Respiratory Rate 19 10/28/17 10:27 Blood Pressure 106/54 10/28/17 10:27 O2 Sat by Pulse Oximetry (%) Assessment: 10/28/17 11:02 withdrawal symptom Plan: continue detox,xray of right 5th toe today
[2017-10-28] MEDS: IBUPROFEN 400 MG TABLET (FP) PO PRN (17:44)
[2017-10-28] MEDS: THIAMINE HCL 100 MG TABLET (FP) PO SCH (22:29)
[2017-10-28] MEDS: traZODone HCL 50 MG TABLET (FP) PO SCH (22:31)
[2017-10-29] MEDS: hydrOXYzine PAMOATE 50 MG CAPSULE (FP) PO PRN ×2 (05:50→13:05)
[2017-10-29] MEDS ORDERED: METHADONE HCL 10 MG TABLET (FOR DETOX USE ONLY) PO ONE (10:00)
--- NOTE | 2017-10-29 10:22 | PN ---
S Progress Note (SOAP) Subjective: alert,irritable,anxious,interrupted sleep Objective: 10/29/17 10:21 Vital Signs Temperature 97.2 F L 10/29/17 09:24 Pulse Rate 70 10/29/17 09:24 Respiratory Rate 18 10/29/17 09:24 Blood Pressure 129/61 10/29/17 09:24 O2 Sat by Pulse Oximetry (%) Assessment: 10/29/17 10:21 withdrawal symptom Plan: continue detox,patient requested to see psychiatrist,discharge in am
[2017-10-29] MEDS: NICOTINE 14 MG/24 HOURS TOPICAL PATCH TD SCH (10:29)
[2017-10-29] MEDS: PRENATAL VITAMINS W/ FOLIC ACID TABLET (FP) PO SCH (10:29)
[2017-10-29] MEDS: risperiDONE 1 MG TABLET (FP) PO SCH ×2 (10:29→22:16)
[2017-10-29] MEDS: BENZTROPINE MESYLATE 1 MG TABLET (FP) PO SCH ×2 (10:30→22:17)
[2017-10-29] MEDS: IBUPROFEN 400 MG TABLET (FP) PO PRN (14:52)
[2017-10-29] MEDS: MAG HYDROX/AL HYDROX/SIMETH 30 ML UNIT-DOSE CUP PO PRN (19:32)
[2017-10-29] MEDS: THIAMINE HCL 100 MG TABLET (FP) PO SCH (22:16)
[2017-10-29] MEDS: traZODone HCL 50 MG TABLET (FP) PO SCH (22:16)
[2017-10-30] MEDS: MAG HYDROX/AL HYDROX/SIMETH 30 ML UNIT-DOSE CUP PO PRN (03:40)
[2017-10-30] MEDS ORDERED: METHADONE HCL 5 MG TABLET (FOR DETOX USE ONLY) PO ONE (06:00)
--- NOTE | 2017-10-30 07:24 | PN ---
Psychiatric Progress Note Vital Signs: Vital Signs Period Temp Pulse Resp BP Sys/Wesley Pulse Ox Last 24 Hr 97.2 F-99 F 70-87 -18 114-129/61-70 Date of Session: 10/30/17 Chief Complaint:: "Do i get my medications after i leave?" HPI: Patient admitted to for opiate dependence. ROS: Significant for bronchial asthma and hepatitis C. Current Medications: Active Medications Generic Name Dose Route Start Last Admin Trade Name Freq PRN Reason Stop Dose Admin Acetaminophen 650 mg 10/25/17 18:27 Tylenol - PO Q4H PRN FEVER Al Hydroxide/Mg Hydroxide 30 ml 10/25/17 18:27 10/30/17 03:40 Mylanta Oral Suspension - PO 30 ml Q6H PRN Administration DYSPEPSIA Albuterol Sulfate 2 puff 10/26/17 11:16 Ventolin Hfa Inhaler - IH Q4H PRN SHORT OF BREATH/WHEEZING Albuterol/Ipratropium 1 amp 10/25/17 18:35 10/26/17 09:09 Duoneb - NEB 1 amp Q6H PRN Administration SHORTNESS OF BREATH Benztropine Mesylate 0.5 mg 10/26/17 22:00 10/29/17 22:17 Cogentin - PO 0.5 mg BID JYOTI Administration Eucalyptus/Menthol/Phenol/Sorbitol 1 each 10/25/17 18:27 Cepastat Lozenge - MM Q4H PRN SORE THROAT Guaifenesin 10 ml 10/25/17 18:27 10/26/17 06:33 Robitussin Dm - PO 10 ml Q6H PRN Administration COUGH Hydroxyzine Pamoate 50 mg 10/25/17 18:27 10/29/17 13:05 Vistaril - PO 50 mg Q4H PRN Administration AGITATION Ibuprofen 400 mg 10/25/17 18:27 10/29/17 14:52 Motrin - PO 400 mg Q6H PRN Administration PAIN LEVEL 4-6 Loperamide HCl 4 mg 10/25/17 18:27 Imodium - PO Q6H PRN DIARRHEA Magnesium Citrate 300 ml 10/25/17 18:27 Citroma - PO Q48H PRN CONSTIPATION Magnesium Hydroxide 30 ml 10/25/17 18:27 Milk Of Magnesia - PO DAILY PRN CONSTIPATION Melatonin 5 mg 10/25/17 22:00 10/28/17 23:31 Melatonin PO 5 mg HS PRN Administration INSOMNIA Nicotine 14 mg 10/26/17 10:00 10/29/17 10:29 Nicoderm Patch - TD Not Given DAILY JYOTI Nicotine Polacrilex 2 mg 10/25/17 18:27 Nicorette Gum - BC Q2H PRN NICOTINE REPLACEMENT RX Multivit/Folic Acid/Iron 1 tab 10/26/17 10:00 10/29/17 10:29 Vitamins (Sjr) - PO 1 tab DAILY JYOTI Administration Pseudoephedrine/Triprolidine 1 combo 10/25/17 18:27 10/26/17 09:22 Actifed - PO 1 combo TID PRN Administration NASAL CONGESTION Risperidone 1 mg 10/26/17 22:00 10/29/17 22:16 Risperdal - PO 1 mg BID JYOTI Administration Thiamine HCl 100 mg 10/25/17 22:00 10/29/17 22:16 Vitamin B1 - PO 100 mg HS JYOTI Administration Trazodone HCl 50 mg 10/26/17 22:00 10/29/17 22:16 Desyrel - PO 50 mg HS JYOTI Administration Medication(s) Change(s): No. Current Side Effect: No Lab tests ordered: No Lab tests reviewed: Yes Provider note:: Evp approached patient concerning psychiatric follow up. Pt. concerning about his after care in rehab and whether he will be ordered his psychotrophic medications when admitted to an inpatient rehab program. Pt. offered positive reassurance. Pt. informed that he will continue to receive his psychiatric medications in rehab. In addition, a prescription of his psychotrophic medications [facility]. Total face to face time:: 15 Mental Status Exam - Mental Status Exam Alert and Oriented to: Time, Place, Person Cognitive Function: Good Patient Appearance: Well Groomed Mood: Euthymic Affect: Mood Congruent Patient Behavior: Appropriate, Cooperative Speech Pattern: Appropriate Voice Loudness: Normal Thought Process: Goal Oriented Thought Disorder: Not Present Hallucinations: Denies Suicidal Ideation: Denies Insight/Judgement: Poor Sleep: Fair Appetite: Fair Muscle strength/Tone: Normal Gait/Station: Normal Psychiatric Treatment Plan - Problem List (3) Nicotine dependence Qualifiers: Nicotine product type: cigarettes Substance use status: in withdrawal Qualified Code(s): F17.213 - Nicotine dependence, cigarettes, with withdrawal
[2017-10-30 09:44] VITALS: BP 137/70; PULSE 78; TEMP 97
--- NOTE | 2017-10-30 23:59 | DS ---
[facility] Detox Discharge Summary Admission Date: 10/25/17 Discharge Date: 10/30/17 - Physical Exam Results Vital Signs: Vital Signs Temperature 97 F L 10/30/17 09:43 Pulse Rate 78 10/30/17 09:43 Respiratory Rate 18 10/30/17 09:43 Blood Pressure 137/70 10/30/17 09:43 O2 Sat by Pulse Oximetry (%) - Medication Discharge Medications: Ambulatory Orders traZODone HCL [Trazodone HCl] 50 mg PO HS 07/16/17 Benztropine Mesylate [Cogentin -] 0.5 mg PO BID #60 tablet 07/21/17 Risperidone [Risperdal -] 1 mg PO BID #60 tablet 07/21/17 Benztropine Mesylate [Cogentin -] 0.5 mg PO BID #60 tablet 10/30/17 Risperidone [Risperdal -] 1 mg PO BID #60 tablet 10/30/17 traZODone HCL [Desyrel -] 50 mg PO HS #30 tablet 10/30/17
== END 2017-10-30 10:05 | disposition home or self-care (01) | DRG 773 ==
LOC: YASAS 15:32 → Y6N 20:01
PROVIDERS: ADMIT Surgery; ATTEND Surgery
PROC: HZ2ZZZZ Detoxification Services for Substance Abuse Treatment (ICD-10-PCS; principal; 2017-10-25)
DX: F11.23 Opioid dependence with withdrawal (principal); F17.213 Nicotine dependence, cigarettes, with withdrawal; F31.9 Bipolar disorder, unspecified; F25.9 Schizoaffective disorder, unspecified; F99 Mental disorder, not otherwise specified; J45.909 Unspecified asthma, uncomplicated; B18.2 Chronic viral hepatitis C; R06.2 Wheezing; K21.9 Gastro-esophageal reflux disease without esophagitis; E66.9 Obesity, unspecified; Z68.30 Body mass index [BMI] 30.0-30.9, adult; S99.921A Unspecified injury of right foot, initial encounter; W22.8XXA Striking against or struck by other objects, initial encounter; Y93.89 Activity, other specified; Y92.239 Unspecified place in hospital as the place of occurrence of the external cause; Z59.0 Homelessness
CPT/HCPCS: 36415; 73660-TC-FY; 80053; 81003; 85027; 86593; 87389; 93005; 93010; 94640; J2794; J7620

== ENCOUNTER 2017-12-13 16:13 | Inpatient (IN) | payer OTHER ==
[2017-12-13 19:56] VITALS: BMI 27.6
[2017-12-13] MEDS ORDERED: METHADONE HCL 10 MG TABLET (FOR DETOX USE ONLY) PO ONE ×2 (21:01→23:00)
[2017-12-13] MEDS ORDERED: P-EPHED 60MG/TRIPROLIDI 2.5MG TABLET PO PRN (21:01)
[2017-12-13] MEDS ORDERED: chlordiazePOXIDE HCL 25 MG CAPSULE PO PRN (21:01)
[2017-12-13] MEDS ORDERED: LOPERAMIDE HCL 2 MG CAPSULE PO PRN (21:01)
[2017-12-13] MEDS ORDERED: MAGNESIUM CITRATE 300 ML BOTTLE PO PRN (21:01)
[2017-12-13] MEDS ORDERED: MAGNESIUM HYDROX 2400MG/30ML ORAL SUSPENSION 30 ML CUP PO PRN (21:01)
[2017-12-13] MEDS ORDERED: MAG HYDROX/AL HYDROX/SIMETH 30 ML UNIT-DOSE CUP PO PRN (21:01)
[2017-12-13] MEDS ORDERED: IBUPROFEN 400 MG TABLET (FP) PO PRN (21:01)
[2017-12-13] MEDS ORDERED: NICOTINE POLACRILEX 2 MG GUM BC PRN (21:01)
--- NOTE | 2017-12-13 21:01 | HP ---
COWS - Scale Resting Pulse: 0= [place] 80 or Below Sweatin= Chills/Flushing Restless Observation: 1= Difficult to Sit Still Pupil Size: 1= Pupils >than Normal Bone or Joint Aches: 1= Mild Discomfort Runny Nose/ Eye Tearin= Runny Nose/Eyes GI Upset > 30mins: 0= None Tremor Observation: 2= Slight Tremor Visible Yawning Observation: 2= >3x During Session Anxiety or Irritability: 2=Irritable/Anxious Goose Flesh Skin: 0=Smooth Skin COWS Score: 12 CIWA Score - CIWA Score Nausea/Vomitin-No Nausea/No Vomiting Muscle Tremors: 1-None Visible, but [place] Anxiety: 3 Agitation: 2 Paroxysmal Sweats: 2 Orientation: 1-Uncertain about Date Tacttile Disturbances: 2-Mild Itch/Numbness/Burn Auditory Disturbances: 0-None Visual Disturbances: 0-None Headache: 2-Mild CIWA-Ar Total Score: 13 Admission ROS S - HPI Chief Complaint: alcohol and opioid withdrawal symptoms Allergies/Adverse Reactions: Allergies Allergy/AdvReac Type Severity Reaction Status Date / Time No Known Allergies Allergy Verified 07/16/17 15:24 History of Present Illness: 42 yo male with of nicotine, IV heroin dependence is here seeking detox. Last detox [facility] 10/25/17 - 10/30/17. PMHX: Hep C, bipolar, anxiety, schizophrenia. Non- adherent with psychiatric medications. Reports occasional period of auditory hallucinations, currently denies auditory hallucinations at this time. Denies social / homicidal ideation or hx of suicide attempt. Reports no significant of sobriety., Hx of OD x 5x, with last episode 2007. Exam Limitations: No Limitations - Ebola screening Have you traveled outside of the country in the last 21 days: No (N) Have you had contact with anyone from an Ebola affected area: No Have you been sick,other than usual withdrawal symptoms: No Do you have a fever: No - Review of Systems Constitutional: Chills, Changes in sleep EENT: reports: Nose Congestion, Dental Problems Respiratory: reports: Cough (x 1 week) Cardiac: reports: No Symptoms Reported GI: reports: Poor Fluid Intake : reports: No Symptoms Reported Musculoskeletal: reports: Back Pain Integumentary: reports: Pruritus, Sweating Neuro: reports: Headache Endocrine: reports: Increased Thirst Hematology: reports: No Symptoms Reported Psychiatric: reports: Orientated x3, Anxious Other Systems: Reviewed and Negative Patient History - Patient Medical History Hx Anemia: No Hx Asthma: No Hx Chronic Obstructive Pulmonary Disease (COPD): No Hx Cancer: No Hx Cardiac Disorders: No Hx Congestive Heart Failure: No Hx Hypertension: No Hx Hypercholesterolemia: No Hx Pacemaker: No HX Cerebrovascular Accident: No Hx Seizures: No Hx Dementia: No Hx Diabetes: No Hx Gastrointestinal Disorders: No Hx Liver Disease: No Hx Genitourinary Disorders: No Hx Sexually Transmitted Disorders: No Hx Renal Disease (ESRD): No Hx Thyroid Disease: No Hx Human Immunodeficiency Virus (HIV): No Hx Hepatitis C: Yes Hx Depression: Yes Hx Suicide Attempt: No Hx Bipolar Disorder: Yes (Denies current thoughts of suicide or violent ideation. ) Hx Schizophrenia: No - Patient Surgical History Past Surgical History: No Hx Neurologic Surgery: No Hx Cataract Extraction: No Hx Cardiac Surgery: No Hx Lung Surgery: No Hx Breast Surgery: No Hx Breast Biopsy: No Hx Abdominal Surgery: No Hx Appendectomy: No Hx Cholecystectomy: No Hx Genitourinary Surgery: No Hx Section: No Hx Orthopedic Surgery: No Anesthesia Reaction: No - PPD History Previous Implant?: No Documented Results: Negative w/proof Date: 07/14/17 Results: 0 mm PPD to be Administered?: Yes - Smoking Cessation Smoking history: Current every day smoker Have you smoked in the past 12 months: Yes Aproximately how many cigarettes per day: 20 Hx Chewing Tobacco Use: No Initiated information on smoking cessation: Yes 'Breaking Loose' booklet given: 12/13/17 - Substance & Tx. History Hx Alcohol Use: Yes Hx Substance Use: Yes (K2) Substance Use Type: Alcohol, Heroin Hx Substance Use Treatment: Yes (Last detox [facility] 10/25/17 - 10/30/17) - Substances Abused Heroin Route: Injection Frequency: Daily Amount used: 5 bags Age of first use: 24 Date of Last Use: 12/13/17 Alcohol Route: Oral Frequency: Daily Amount used: 1/2 pint of liquor Age of first use: 14 Date of Last Use: 12/13/17 K2 Route: Smoking Frequency: 1-3 times last 30 days Amount used: $5 Age of first use: 40 Date of Last Use: 12/12/17 Family Disease History - Family Disease History Family Disease History: Diabetes: Father, Heart Disease: Mother Admission Physical Exam [facility] - Vital Signs Vital Signs: Vital Signs - 24 hr 12/13/17 19:54 Temperature 97.0 F L Pulse Rate 79 Respiratory 18 Rate Blood Pressure 128/79 - Physical General Appearance: Yes: Disheveled, Mild Distress, Anxious, Other (unkempt) HEENTM: Yes: EOMI, Hearing grossly Normal, Normal ENT Inspection, Normocephalic , Normal Voice, JUMANA, Pharynx Normal, Tm's normal, Other (poor dentition) Respiratory: Yes: Chest Non-Tender, Lungs Clear, Normal Breath Sounds, No Respiratory Distress, No Accessory Muscle Use, Wheezing Neck: Yes: Within Normal Limits Breast: Yes: Breast Exam Deferred Cardiology: Yes: Regular Rhythm, Regular Rate Abdominal: Yes: Normal Bowel Sounds, Non Tender, Flat, Soft Genitourinary: Yes: Within Normal Limits Back: Yes: Normal Inspection Musculoskeletal: Yes: full range of Motion, Gait Steady, Pelvis Stable Extremities: Yes: Within Normal Limits Neurological: Yes: brush loader and handle attacher II-XII NML intact, Fully Oriented, Alert, Motor Strength 5/5, Depressed Affect Integumentary: Yes: Normal Color, Warm, Diaphoresis Lymphatic: Yes: Within Normal Limits - Diagnostic (1) Alcohol dependence with uncomplicated withdrawal Current Visit: Yes Status: Acute (2) Asthma Current Visit: Yes Status: Acute Qualifiers: Asthma severity: mild Asthma persistence: intermittent Asthma complication type: uncomplicated Qualified Code(s): J45.20 - Mild intermittent asthma, uncomplicated (3) Opioid dependence with withdrawal Current Visit: Yes Status: Acute (4) Psychiatric disorder Current Visit: No Status: Acute (5) Hepatitis C Current Visit: Yes Status: Chronic Qualifiers: Viral hepatitis chronicity: chronic Hepatic coma status: without hepatic coma Qualified Code(s): B18.2 - Chronic viral hepatitis C Comment: No treatment history (6) Nicotine dependence Current Visit: Yes Status: Chronic Qualifiers: Nicotine product type: cigarettes Substance use status: in withdrawal Qualified Code(s): F17.213 - Nicotine dependence, cigarettes, with withdrawal Cleared for Admission [facility] - Detox or Rehab [facility] Level of Care: Medically Managed Detox Regimen/Protocol: Methadone/Librium [facility] Breath Alcohol Content Breath Alcohol Content: 0 Urine Drug Screen - Results Drug Screen Negative: No Urine Drug Screen Results: THC-Marijuana, OPI-Opiates
[2017-12-13] MEDS ORDERED: MELATONIN 5 MG TABLETS PO PRN (22:00)
[2017-12-13] MEDS: THIAMINE HCL 100 MG TABLET (FP) PO SCH (22:30)
[2017-12-13] MEDS: chlordiazePOXIDE HCL 25 MG CAPSULE PO SCH (22:31)
[2017-12-14] MEDS: chlordiazePOXIDE HCL 25 MG CAPSULE PO SCH ×4 (05:47→22:30)
[2017-12-14] MEDS: guaiFENesin/D-METHORPHAN HB 10 ML UNIT-DOSE CUPS PO PRN ×3 (06:19→22:33)
[2017-12-14] MEDS: ACETAMINOPHEN 325 MG TABLET (FP) PO PRN (06:53)
[2017-12-14] MEDS ORDERED: METHADONE HCL 10 MG TABLET (FOR DETOX USE ONLY) PO SCH (10:00)
[2017-12-14] MEDS: PRENATAL VITAMINS W/ FOLIC ACID TABLET (FP) PO SCH (10:42)
[2017-12-14] MEDS: NICOTINE 21 MG/24 HOURS TOPICAL PATCH TD SCH (10:42)
[2017-12-14 10:50] LABS: HEMATOCRIT 35.1 % (35.4-49); HEMOGLOBIN 11.4 GM/dL (11.7-16.9); MCH 28.1 pg (25.7-33.7); MCHC 32.6 g/dl (32.0-35.9); MEAN CELL VOLUME 86.4 fl (80-96); MEAN PLT VOLUME 8.5 fl (7.5-11.1); PLATELET COUNT 233 K/MM3 (134-434); RBC 4.06 M/mm3 (4.00-5.60); WHITE BLOOD COUNT 8.1 K/mm3 (4.0-10.0)
--- NOTE | 2017-12-14 10:59 | EKG ---
Test Reason : Blood Pressure : / mmHG Vent. Rate : 064 BPM Atrial Rate : 064 BPM P-R Int : 138 ms QRS Dur : 086 ms QT Int : 404 ms P-R-T Axes : 085 039 000 degrees QTc Int : 416 ms POOR DATA QUALITY, INTERPRETATION MAY BE ADVERSELY AFFECTED NORMAL SINUS RHYTHM NORMAL ECG Confirmed by MD LUCAS, ROSEMARY ([id number]) on 12/14/2017 10:59:48 AM Referred By: Confirmed By:ROSEMARY ZAVALA MD
[2017-12-14] MEDS: MENTHOL/PHENOL 1 EACH UD MM PRN (11:08)
[2017-12-14 11:21] LABS: ALK PHOS 83 U/L (45-117); ANION GAP 9 MMOL/L (8-16); BILIRUBIN,TOTAL 0.3 mg/dL (0.2-1); BLOOD UREA NITROGEN 10 mg/dL (7-18); CHLORIDE 104 mmol/L (98-107); CO2 27 mmol/L (21-32); CREATININE 0.8 mg/dL (0.55-1.3); GLUCOSE,RANDOM 68 mg/dL (74-106); POTASSIUM 4.3 mmol/L (3.5-5.1); SGOT/AST 9 U/L (15-37); SGPT/ALT 18 U/L (13-61); SODIUM 140 mmol/L (136-145); TOT PROT 7.6 g/dl (6.4-8.2)
--- NOTE | 2017-12-14 13:30 | CONSULT ---
[facility] Psychiatric Consult - Data Date of interview: 12/14/17 Admission source: [facility] Identifying data: Patient is a 42 year old single male, without children, unemployed, homeless, and is supported by [facility]. This is one of multiple admissions for patient. Pt. admitted to for opiate dependence. Substance Abuse History: Smoking Cessation. Smoking history: Current every day smoker. Have you smoked in the past 12 months: Yes. Aproximately how many cigarettes per day: 20. Hx Chewing Tobacco Use: No. Initiated information on smoking cessation: Yes. 'Breaking Loose' booklet given: 12/13/17. - Substance & Tx. History. Hx Alcohol Use: Yes. Hx Substance Use: Yes (K2). Substance Use Type: Alcohol, Heroin. Hx Substance Use Treatment: Yes (Last detox [facility] 10/25 - 10/30/17). - Substances Abused. Heroin. Route: Injection. Frequency : Daily. Amount used: 5 bags. Age of first use: 24. Date of Last Use: . Alcohol. Route: Oral. Frequency: Daily. Amount used: 1/2 pint of liquor. Age of first use: 14. Date of Last Use: 12/13/17. K2. Route: Smoking. Frequency: 1-3 times last 30 days. Amount used: $5. Age of first use : 40. Date of Last Use: 12/12/17 Medical History: Hep C Psychiatric History: Patient reports multiple psychiatric hospitalization, most recently at [facility] [place] 3 months ago after endorsing auditory hallucinations. Pt. is also known to [place], [facility], [facility], and [facility]. Mr. Valenzuela most recent outpatient care was three years ago in [place]. Patient was recently admitted to detox at [facility] and was seen by Dr. Bhakta. Patient was resumed on Risperdal 1mg BID + Cogentin 0.5mg BID. Pt. reports nonadherence to medications since discharge and is requesting to restart medications. Physical/Sexual Abuse/Trauma History: denies. Mental Status Exam - Mental Status Exam Alert and Oriented to: Time, Place, Person Cognitive Function: Good Patient Appearance: Well Groomed Mood: Euthymic Affect: Appropriate, Mood Congruent Patient Behavior: Appropriate, Cooperative Speech Pattern: Clear, Appropriate Voice Loudness: Normal Thought Process: Intact, Goal Oriented Thought Disorder: Not Present Hallucinations: Denies Suicidal Ideation: Denies Homicidal Ideation: Denies Insight/Judgement: Poor Sleep: Poorly Appetite: Fair Muscle strength/Tone: Normal Gait/Station: Normal Psychiatric Findings - Problem List ([place] 1, 2,3) (1) Alcohol dependence with uncomplicated withdrawal Current Visit: Yes Status: Acute (2) Opioid dependence with withdrawal Current Visit: Yes Status: Acute (3) Nicotine dependence Current Visit: Yes Status: Chronic Qualifiers: Nicotine product type: cigarettes Substance use status: in withdrawal Qualified Code(s): F17.213 - Nicotine dependence, cigarettes, with withdrawal (4) Bipolar disorder Current Visit: Yes Status: Chronic Comment: As per self-report. (5) Schizoaffective disorder Current Visit: No Status: Suspected - Initial Treatment Plan Initial Treatment Plan: Psychoeducation provided. Detoxification in progress. Risperdal 1mg BID + Cogentin 0.5mg BID + Trazodone 50mg qhs. Benefits and side effects discussed. Verbal consent given.
--- NOTE | 2017-12-14 17:46 | PN ---
[facility] CIWA - CIWA Score Nausea/Vomitin-Mild Nausea/No Vomiting Muscle Tremors: 3 Anxiety: 3 Agitation: 3 Paroxysmal Sweats: 1-Minimal Palms Moist Orientation: 0-Oriented Tacttile Disturbances: 1-Very Mild Itch/Numbness Auditory Disturbances: 0-None Visual Disturbances: 0-None Headache: 0-None Present CIWA-Ar Total Score: 12 [facility] COWS - Scale Resting Pulse: 0= [place] 80 or Below Sweatin= Chills/Flushing Restless Observation: 1= Difficult to Sit Still Pupil Size: 0= Normal to Room Light Bone or Joint Aches: 2= Severe Diffuse Aches Runny Nose/ Eye Tearin= Nasal Congestion GI Upset > 30mins: 2= Nausea/Diarrhea Tremor Observation of Outstretched Hands: 2= Slight Tremor Visible Yawning Observation: 2= >3x During Session Anxiety or Irritability: 1=Feels Anxious/Irritable Goose Flesh Skin: 0=Smooth Skin COWS Score: 12 [facility] Progress Note (SOAP) Subjective: body aches tremor sweat able to tolerate food and fluid Objective: 12/14/17 17:48 Vital Signs Temperature 98.1 F 12/14/17 17:44 Pulse Rate 60 12/14/17 17:44 Respiratory Rate 19 12/14/17 17:44 Blood Pressure 119/60 12/14/17 17:44 O2 Sat by Pulse Oximetry (%) Laboratory Last Values WBC 8.1 K/mm3 (4.0-10.0) 12/14/17 07:00 RBC 4.06 M/mm3 (4.00-5.60) 12/14/17 07:00 Hgb 11.4 GM/dL (11.7-16.9) L 12/14/17 07:00 Hct 35.1 % (35.4-49) L 12/14/17 07:00 MCV 86.4 fl (80-96) 12/14/17 07:00 MCH 28.1 pg (25.7-33.7) 12/14/17 07:00 MCHC 32.6 g/dl (32.0-35.9) 12/14/17 07:00 RDW 16.0 % (11.9-15.9) H 12/14/17 07:00 Plt Count 233 K/MM3 (134-434) D 12/14/17 07:00 MPV 8.5 fl (7.5-11.1) 12/14/17 07:00 Sodium 140 mmol/L (136-145) 12/14/17 07:00 Potassium 4.3 mmol/L (3.5-5.1) 12/14/17 07:00 Chloride 104 mmol/L (98-107) 12/14/17 07:00 Carbon Dioxide 27 mmol/L (21-32) 12/14/17 07:00 Anion Gap 9 MMOL/L (8-16) 12/14/17 07:00 BUN 10 mg/dL (7-18) 12/14/17 07:00 Creatinine 0.8 mg/dL (0.55-1.3) 12/14/17 07:00 Creat Clearance w eGFR > 60 (>60) 12/14/17 07:00 Random Glucose 68 mg/dL (74-106) L 12/14/17 07:00 Calcium 9.0 mg/dL (8.5-10.1) 12/14/17 07:00 Total Bilirubin 0.3 mg/dL (0.2-1) 12/14/17 07:00 AST 9 U/L (15-37) L 12/14/17 07:00 ALT 18 U/L (13-61) 12/14/17 07:00 Alkaline Phosphatase 83 U/L (45-117) 12/14/17 07:00 Total Protein 7.6 g/dl (6.4-8.2) 12/14/17 07:00 Albumin 3.0 g/dl (3.4-5.0) L 12/14/17 07:00 RPR Titer Nonreactive (NONREACTIVE) 12/14/17 07:00 HIV 1&2 Antibody Screen Negative 12/14/17 07:00 HIV P24 Antigen Negative 12/14/17 07:00 lab noted Assessment: 12/14/17 17:48 withdrawal sx Plan: continue detox
[2017-12-14 18:15] LABS: URINE APPEARANCE TURBID; URINE BILIRUBIN NEGATIVE (<2.0 mg/dL); URINE COLOR AMBER; URINE GLUCOSE (UA) NEGATIVE (NEGATIVE); URINE KETONE NEGATIVE (NEGATIVE); URINE NITRITE NEGATIVE (NEGATIVE); URINE PROTEIN NEGATIVE (NEGATIVE); URINE UROBILINOGEN 4.0 E.U/dl mg/dL (0.2-1.0)
[2017-12-14 18:22] LABS: URINE LEUK ESTERASE 2+ (NEGATIVE)
[2017-12-14 18:23] LABS: CALCIUM OXALATE CRYSTALS RARE /hpf (NONE SEEN); EPI CELLS RARE /HPF (FEW); URINE MUCUS MANY
[2017-12-14] MEDS: ALBUTEROL SO4 0.083% IH SOL 2.5 MG/3 ML VIAL.NEB. NEB PRN ×2 (19:01→23:23)
[2017-12-14] MEDS: THIAMINE HCL 100 MG TABLET (FP) PO SCH (22:30)
[2017-12-14] MEDS: risperiDONE 1 MG TABLET (FP) PO SCH (22:30)
[2017-12-14] MEDS: BENZTROPINE MESYLATE 1 MG TABLET (FP) PO SCH (22:33)
[2017-12-15] MEDS: guaiFENesin/D-METHORPHAN HB 10 ML UNIT-DOSE CUPS PO PRN (05:53)
[2017-12-15] MEDS: chlordiazePOXIDE HCL 25 MG CAPSULE PO SCH ×3 (05:53→16:58)
[2017-12-15] MEDS: ACETAMINOPHEN 325 MG TABLET (FP) PO PRN (05:54)
[2017-12-15] MEDS: BENZTROPINE MESYLATE 1 MG TABLET (FP) PO SCH ×2 (10:12→22:13)
[2017-12-15] MEDS: METHADONE HCL 5 MG TABLET (FOR DETOX USE ONLY) PO SCH (10:12)
[2017-12-15] MEDS: risperiDONE 1 MG TABLET (FP) PO SCH ×2 (10:13→22:13)
[2017-12-15] MEDS: PRENATAL VITAMINS W/ FOLIC ACID TABLET (FP) PO SCH (10:13)
[2017-12-15] MEDS: NICOTINE 21 MG/24 HOURS TOPICAL PATCH TD SCH (10:14)
--- NOTE | 2017-12-15 11:36 | PN ---
[facility] CIWA - CIWA Score Nausea/Vomitin-No Nausea/No Vomiting Muscle Tremors: 3 Anxiety: 3 Agitation: 4-Moderately Restless Paroxysmal Sweats: 1-Minimal Palms Moist Orientation: 0-Oriented Tacttile Disturbances: 0-None Auditory Disturbances: 0-None Visual Disturbances: 0-None Headache: 0-None Present CIWA-Ar Total Score: 11 S COWS - Scale Resting Pulse: 0= [place] 80 or Below Sweatin= Chills/Flushing Restless Observation: 0= Sits Still Pupil Size: 0= Normal to Room Light Bone or Joint Aches: 2= Severe Diffuse Aches Runny Nose/ Eye Tearin= Nasal Congestion GI Upset > 30mins: 1= Stomach Cramp Tremor Observation of Outstretched Hands: 2= Slight Tremor Visible Yawning Observation: 2= >3x During Session Anxiety or Irritability: 2=Irritable/Anxious Goose Flesh Skin: 0=Smooth Skin COWS Score: 11 [facility] Progress Note (SOAP) Subjective: body aches muscle cramping sweat tremor Objective: 12/15/17 11:36 Vital Signs Temperature 98.2 F 12/15/17 09:25 Pulse Rate 72 12/15/17 09:25 Respiratory Rate 18 12/15/17 09:25 Blood Pressure 114/57 L 12/15/17 09:25 O2 Sat by Pulse Oximetry (%) Laboratory Last Values WBC 8.1 K/mm3 (4.0-10.0) 12/14/17 07:00 RBC 4.06 M/mm3 (4.00-5.60) 12/14/17 07:00 Hgb 11.4 GM/dL (11.7-16.9) L 12/14/17 07:00 Hct 35.1 % (35.4-49) L 12/14/17 07:00 MCV 86.4 fl (80-96) 12/14/17 07:00 MCH 28.1 pg (25.7-33.7) 12/14/17 07:00 MCHC 32.6 g/dl (32.0-35.9) 12/14/17 07:00 RDW 16.0 % (11.9-15.9) H 12/14/17 07:00 Plt Count 233 K/MM3 (134-434) D 12/14/17 07:00 MPV 8.5 fl (7.5-11.1) 12/14/17 07:00 Sodium 140 mmol/L (136-145) 12/14/17 07:00 Potassium 4.3 mmol/L (3.5-5.1) 12/14/17 07:00 Chloride 104 mmol/L (98-107) 12/14/17 07:00 Carbon Dioxide 27 mmol/L (21-32) 12/14/17 07:00 Anion Gap 9 MMOL/L (8-16) 12/14/17 07:00 BUN 10 mg/dL (7-18) 12/14/17 07:00 Creatinine 0.8 mg/dL (0.55-1.3) 12/14/17 07:00 Creat Clearance w eGFR > 60 (>60) 12/14/17 07:00 Random Glucose 68 mg/dL (74-106) L 12/14/17 07:00 Calcium 9.0 mg/dL (8.5-10.1) 12/14/17 07:00 Total Bilirubin 0.3 mg/dL (0.2-1) 12/14/17 07:00 AST 9 U/L (15-37) L 12/14/17 07:00 ALT 18 U/L (13-61) 12/14/17 07:00 Alkaline Phosphatase 83 U/L (45-117) 12/14/17 07:00 Total Protein 7.6 g/dl (6.4-8.2) 12/14/17 07:00 Albumin 3.0 g/dl (3.4-5.0) L 12/14/17 07:00 Urine Color Lauren 12/14/17 17:00 Urine Appearance Turbid 12/14/17 17:00 Urine pH 6.0 (5.0-8.0) 12/14/17 17:00 Ur Specific [place] 1.028 (1.001-1.035) 12/14/17 17:00 Urine Protein Negative (NEGATIVE) 12/14/17 17:00 Urine Glucose (UA) Negative (NEGATIVE) 12/14/17 17:00 Urine Ketones Negative (NEGATIVE) 12/14/17 17:00 Urine Blood Negative (NEGATIVE) 12/14/17 17:00 Urine Nitrite Negative (NEGATIVE) 12/14/17 17:00 Urine Bilirubin Negative (<2.0 mg/dL) 12/14/17 17:00 Urine Urobilinogen 4.0 e.u/dl mg/dL (0.2-1.0) 12/14/17 17:00 Ur Leukocyte Esterase 2+ (NEGATIVE) H 12/14/17 17:00 Urine WBC (Auto) 5 /hpf (3-5) 12/14/17 17:00 Urine RBC (Auto) 4 /hpf (0-3) 12/14/17 17:00 Ur Epithelial Cells Rare /HPF (FEW) 12/14/17 17:00 Calcium Oxalate Crystal Rare /hpf (NONE SEEN) 12/14/17 17:00 Urine Mucus Many 12/14/17 17:00 RPR Titer Nonreactive (NONREACTIVE) 12/14/17 07:00 HIV 1&2 Antibody Screen Negative 12/14/17 07:00 HIV P24 Antigen Negative 12/14/17 07:00 lab noted Assessment: 12/15/17 11:37 withdrawal sx Plan: continue detox
[2017-12-15] MEDS: ALBUTEROL SO4 0.083% IH SOL 2.5 MG/3 ML VIAL.NEB. NEB PRN (20:09)
[2017-12-15] MEDS: chlordiazePOXIDE 5 MG CAPSULE PO SCH (22:13)
[2017-12-15] MEDS: traZODone HCL 50 MG TABLET (FP) PO SCH (22:13)
[2017-12-15] MEDS: THIAMINE HCL 100 MG TABLET (FP) PO SCH (22:14)
[2017-12-16] MEDS: guaiFENesin/D-METHORPHAN HB 10 ML UNIT-DOSE CUPS PO PRN ×3 (00:43→16:38)
[2017-12-16] MEDS: chlordiazePOXIDE 5 MG CAPSULE PO SCH ×3 (05:20→17:23)
[2017-12-16] MEDS: NICOTINE 21 MG/24 HOURS TOPICAL PATCH TD SCH (10:13)
[2017-12-16] MEDS: METHADONE HCL 5 MG TABLET (FOR DETOX USE ONLY) PO SCH (10:15)
[2017-12-16] MEDS: risperiDONE 1 MG TABLET (FP) PO SCH ×2 (10:15→22:02)
[2017-12-16] MEDS: BENZTROPINE MESYLATE 1 MG TABLET (FP) PO SCH ×2 (10:15→22:02)
[2017-12-16] MEDS: PRENATAL VITAMINS W/ FOLIC ACID TABLET (FP) PO SCH (10:15)
[2017-12-16] MEDS: ALBUTEROL SO4 0.083% IH SOL 2.5 MG/3 ML VIAL.NEB. NEB PRN (11:42)
--- NOTE | 2017-12-16 13:07 | PN ---
[facility] CIWA - CIWA Score Nausea/Vomitin-No Nausea/No Vomiting Muscle Tremors: None Anxiety: 0-No Anxiety, at Ease Agitation: 0-Normal Activity Paroxysmal Sweats: No Perspiration Orientation: 0-Oriented Tacttile Disturbances: 0-None Auditory Disturbances: 0-None Visual Disturbances: 0-None Headache: 1-Very Mild CIWA-Ar Total Score: 1 S COWS - Scale Resting Pulse: 0= [place] 80 or Below Sweatin= No chills or Flushing Restless Observation: 0= Sits Still Pupil Size: 0= Normal to Room Light Bone or Joint Aches: 0= None Runny Nose/ Eye Tearin= None GI Upset > 30mins: 0= None Tremor Observation of Outstretched Hands: 0= None Yawning Observation: 0= None Anxiety or Irritability: 0= None Goose Flesh Skin: 0=Smooth Skin COWS Score: 0 S Progress Note (SOAP) Subjective: Patient c/o headache. Objective: 12/16/17 13:02 Vital Signs Temperature 97.8 F 12/16/17 08:55 Pulse Rate 70 12/16/17 08:55 Respiratory Rate 18 12/16/17 08:55 Blood Pressure 120/62 12/16/17 08:55 O2 Sat by Pulse Oximetry (%) Laboratory Tests 12/14/17 12/14/17 12/14/17 07:00 07:00 07:00 WBC 8.1 RBC 4.06 Hgb 11.4 L Hct 35.1 L MCV 86.4 MCH 28.1 MCHC 32.6 RDW 16.0 H Plt Count 233 D MPV 8.5 Sodium 140 Potassium 4.3 Chloride 104 Carbon Dioxide 27 Anion Gap 9 BUN 10 Creatinine 0.8 Creat Clearance w eGFR > 60 Random Glucose 68 L Calcium 9.0 Total Bilirubin 0.3 AST 9 L ALT 18 Alkaline Phosphatase 83 Total Protein 7.6 Albumin 3.0 L Urine Color Urine Appearance Urine pH Ur Specific [place] Urine Protein Urine Glucose (UA) Urine Ketones Urine Blood Urine Nitrite Urine Bilirubin Urine Urobilinogen Ur Leukocyte Esterase Urine WBC (Auto) Urine RBC (Auto) Ur Epithelial Cells Calcium Oxalate Crystal Urine Mucus RPR Titer Nonreactive HIV 1&2 Antibody Screen HIV P24 Antigen 12/14/17 12/14/17 07:00 17:00 WBC RBC Hgb Hct MCV MCH MCHC RDW Plt Count MPV Sodium Potassium Chloride Carbon Dioxide Anion Gap BUN Creatinine Creat Clearance w eGFR Random Glucose Calcium Total Bilirubin AST ALT Alkaline Phosphatase Total Protein Albumin Urine Color Lauren Urine Appearance Turbid Urine pH 6.0 Ur Specific [place] 1.028 Urine Protein Negative Urine Glucose (UA) Negative Urine Ketones Negative Urine Blood Negative Urine Nitrite Negative Urine Bilirubin Negative Urine Urobilinogen 4.0 e.u/dl Ur Leukocyte Esterase 2+ H Urine WBC (Auto) 5 Urine RBC (Auto) 4 Ur Epithelial Cells Rare Calcium Oxalate Crystal Rare Urine Mucus Many RPR Titer HIV 1&2 Antibody Screen Negative HIV P24 Antigen Negative alert and oriented skin warm and dry car s1s2 resp cta bl neuro +perrla, EOMIs intact BL Assessment: 12/16/17 13:04 Withdrawal syndrome Plan: Continue detox as ordered encourage oral fluids continue to monitor clinically
[2017-12-16] MEDS: chlordiazePOXIDE HCL 10 MG CAPSULE PO SCH (22:02)
[2017-12-16] MEDS: THIAMINE HCL 100 MG TABLET (FP) PO SCH (22:03)
[2017-12-16] MEDS: traZODone HCL 50 MG TABLET (FP) PO SCH (22:03)
[2017-12-17] MEDS: chlordiazePOXIDE HCL 10 MG CAPSULE PO SCH ×3 (05:21→17:25)
[2017-12-17] MEDS ORDERED: METHADONE HCL 10 MG TABLET (FOR DETOX USE ONLY) PO SCH (10:00)
[2017-12-17] MEDS: BENZTROPINE MESYLATE 1 MG TABLET (FP) PO SCH ×2 (10:06→22:22)
[2017-12-17] MEDS: NICOTINE 21 MG/24 HOURS TOPICAL PATCH TD SCH (10:06)
[2017-12-17] MEDS: PRENATAL VITAMINS W/ FOLIC ACID TABLET (FP) PO SCH (10:06)
[2017-12-17] MEDS: risperiDONE 1 MG TABLET (FP) PO SCH ×2 (10:07→22:22)
--- NOTE | 2017-12-17 10:15 | PN ---
[facility] Progress Note (SOAP) Subjective: sweats Objective: 12/17/17 10:15 Vital Signs Temperature 96.9 F L 12/17/17 09:13 Pulse Rate 68 12/17/17 09:13 Respiratory Rate 18 12/17/17 09:13 Blood Pressure 109/59 L 12/17/17 09:13 O2 Sat by Pulse Oximetry (%) aaox3 ambulating no acute distress Assessment: 12/17/17 10:15 withdrawal sx Plan: continue detox d/c in am
[2017-12-17] MEDS: MENTHOL/PHENOL 1 EACH UD MM PRN (11:44)
[2017-12-17] MEDS: ALBUTEROL SO4 0.083% IH SOL 2.5 MG/3 ML VIAL.NEB. NEB PRN (14:07)
[2017-12-17] MEDS: traZODone HCL 50 MG TABLET (FP) PO SCH (22:22)
[2017-12-17] MEDS: THIAMINE HCL 100 MG TABLET (FP) PO SCH (22:22)
[2017-12-18] MEDS ORDERED: METHADONE HCL 5 MG TABLET (FOR DETOX USE ONLY) PO SCH (06:00)
--- NOTE | 2017-12-18 08:24 | DS ---
[facility] Detox Discharge Summary Admission Date: 12/13/17 Discharge Date: 12/18/17 - History Present History: Alcohol Dependence, Opioid Dependence Additional Comments: Patient medically stable. Patient to follow up with primary care provider in 1 - 2 weeks. Pertinent Past History: Vital Signs Temperature 97.3 F L 12/18/17 06:55 Pulse Rate 73 12/18/17 06:55 Respiratory Rate 20 12/18/17 06:55 Blood Pressure 113/71 12/18/17 06:55 O2 Sat by Pulse Oximetry (%) Laboratory Last Values WBC 8.1 K/mm3 (4.0-10.0) 12/14/17 07:00 RBC 4.06 M/mm3 (4.00-5.60) 12/14/17 07:00 Hgb 11.4 GM/dL (11.7-16.9) L 12/14/17 07:00 Hct 35.1 % (35.4-49) L 12/14/17 07:00 MCV 86.4 fl (80-96) 12/14/17 07:00 MCH 28.1 pg (25.7-33.7) 12/14/17 07:00 MCHC 32.6 g/dl (32.0-35.9) 12/14/17 07:00 RDW 16.0 % (11.9-15.9) H 12/14/17 07:00 Plt Count 233 K/MM3 (134-434) D 12/14/17 07:00 MPV 8.5 fl (7.5-11.1) 12/14/17 07:00 Sodium 140 mmol/L (136-145) 12/14/17 07:00 Potassium 4.3 mmol/L (3.5-5.1) 12/14/17 07:00 Chloride 104 mmol/L (98-107) 12/14/17 07:00 Carbon Dioxide 27 mmol/L (21-32) 12/14/17 07:00 Anion Gap 9 MMOL/L (8-16) 12/14/17 07:00 BUN 10 mg/dL (7-18) 12/14/17 07:00 Creatinine 0.8 mg/dL (0.55-1.3) 12/14/17 07:00 Creat Clearance w eGFR > 60 (>60) 12/14/17 07:00 Random Glucose 68 mg/dL (74-106) L 12/14/17 07:00 Calcium 9.0 mg/dL (8.5-10.1) 12/14/17 07:00 Total Bilirubin 0.3 mg/dL (0.2-1) 12/14/17 07:00 AST 9 U/L (15-37) L 12/14/17 07:00 ALT 18 U/L (13-61) 12/14/17 07:00 Alkaline Phosphatase 83 U/L (45-117) 12/14/17 07:00 Total Protein 7.6 g/dl (6.4-8.2) 12/14/17 07:00 Albumin 3.0 g/dl (3.4-5.0) L 12/14/17 07:00 Urine Color Lauren 12/14/17 17:00 Urine Appearance Turbid 12/14/17 17:00 Urine pH 6.0 (5.0-8.0) 12/14/17 17:00 Ur Specific [place] 1.028 (1.001-1.035) 12/14/17 17:00 Urine Protein Negative (NEGATIVE) 12/14/17 17:00 Urine Glucose (UA) Negative (NEGATIVE) 12/14/17 17:00 Urine Ketones Negative (NEGATIVE) 12/14/17 17:00 Urine Blood Negative (NEGATIVE) 12/14/17 17:00 Urine Nitrite Negative (NEGATIVE) 12/14/17 17:00 Urine Bilirubin Negative (<2.0 mg/dL) 12/14/17 17:00 Urine Urobilinogen 4.0 e.u/dl mg/dL (0.2-1.0) 12/14/17 17:00 Ur Leukocyte Esterase 2+ (NEGATIVE) H 12/14/17 17:00 Urine WBC (Auto) 5 /hpf (3-5) 12/14/17 17:00 Urine RBC (Auto) 4 /hpf (0-3) 12/14/17 17:00 Ur Epithelial Cells Rare /HPF (FEW) 12/14/17 17:00 Calcium Oxalate Crystal Rare /hpf (NONE SEEN) 12/14/17 17:00 Urine Mucus Many 12/14/17 17:00 RPR Titer Nonreactive (NONREACTIVE) 12/14/17 07:00 HIV 1&2 Antibody Screen Negative 12/14/17 07:00 HIV P24 Antigen Negative 12/14/17 07:00 - Physical Exam Results Vital Signs: Vital Signs Temperature 97.3 F L 12/18/17 06:55 Pulse Rate 73 12/18/17 06:55 Respiratory Rate 20 12/18/17 06:55 Blood Pressure 113/71 12/18/17 06:55 O2 Sat by Pulse Oximetry (%) - Treatment Hospital Course: Detox Protocol Followed, Detoxed Safely, Responded well, Discharged Condition Good, Rehab Referral Accepted Patient has Accepted a Rehab Referral to: [facility] - Medication Discharge Medications: Ambulatory Orders Benztropine Mesylate [Cogentin -] 0.5 mg PO BID #60 tablet 07/21/17 Risperidone [Risperdal -] 1 mg PO BID #60 tablet 07/21/17 traZODone HCL [Desyrel -] 50 mg PO HS #30 tablet 10/30/17 Albuterol Sulfate Inhaler - [Ventolin HFA Inhaler -] 2 inh PO Q4H #1 inh - Diagnosis (1) Alcohol dependence with uncomplicated withdrawal Current Visit: Yes Status: Acute (2) Asthma Current Visit: Yes Status: Acute Qualifiers: Asthma severity: mild Asthma persistence: intermittent Asthma complication type: uncomplicated Qualified Code(s): J45.20 - Mild intermittent asthma, uncomplicated (3) Opioid dependence with withdrawal Current Visit: Yes Status: Acute (4) Psychiatric disorder Current Visit: Yes Status: Suspected (5) Hepatitis C Current Visit: Yes Status: Chronic Qualifiers: Viral hepatitis chronicity: chronic Hepatic coma status: without hepatic coma Qualified Code(s): B18.2 - Chronic viral hepatitis C (6) Nicotine dependence Current Visit: Yes Status: Chronic Qualifiers: Nicotine product type: cigarettes Substance use status: in withdrawal Qualified Code(s): F17.213 - Nicotine dependence, cigarettes, with withdrawal - AMA Did Patient Leave Against Medical Advice: No
[2017-12-18 08:58] VITALS: BP 123/61; PULSE 83; TEMP 97.7
== END 2017-12-18 09:10 | disposition home or self-care (01) | DRG 773 ==
LOC: YASAS 16:13 → Y6N 21:28
PROC: HZ2ZZZZ Detoxification Services for Substance Abuse Treatment (ICD-10-PCS; principal; 2017-12-13)
DX: F11.23 Opioid dependence with withdrawal (principal); F10.230 Alcohol dependence with withdrawal, uncomplicated; F17.213 Nicotine dependence, cigarettes, with withdrawal; F25.9 Schizoaffective disorder, unspecified; F99 Mental disorder, not otherwise specified; F31.9 Bipolar disorder, unspecified; J45.20 Mild intermittent asthma, uncomplicated; B18.2 Chronic viral hepatitis C; Z59.0 Homelessness
CPT/HCPCS: 36415; 80053; 81003; 81015; 85027; 86593; 87389; 93005; 93010; 94640; J2794

== ENCOUNTER 2018-03-09 11:28 | Inpatient (IN) | payer OTHER ==
[2018-03-09 13:19] VITALS: BMI 30.4
[2018-03-09] MEDS ORDERED: chlordiazePOXIDE HCL 25 MG CAPSULE PO ONE (13:45)
--- NOTE | 2018-03-09 14:04 | HP ---
"COWS - Scale Resting Pulse: 0= [place] 80 or Below Sweatin=Flushed/Facial Moisture Restless Observation: 1= Difficult to Sit Still Pupil Size: 2= Moderately Dilated (Pupils = 5 mm) Bone or Joint Aches: 0= None Runny Nose/ Eye Tearin= Nasal Congestion GI Upset > 30mins: 2= Nausea/Diarrhea Tremor Observation: 4= Gross Tremor/Twitching Yawning Observation: 0= None Anxiety or Irritability: 2=Irritable/Anxious (Very irritable. Having angry outbursts.) Goose Flesh Skin: 0=Smooth Skin COWS Score: 14 CIWA Score Nausea/Vomitin Muscle Tremors: 4-Moderate,w/Arms Extend Anxiety: 4-Mod. Anxious/Guarded Agitation: 4-Moderately Restless (Very agitated. Having angry outbursts.) Paroxysmal Sweats: 3 (Facial moisture) Orientation: 3-Disoriented Date>2 days Tacttile Disturbances: 0-None Auditory Disturbances: 0-None Visual Disturbances: 0-None Headache: 0-None Present CIWA-Ar Total Score: 21 - Admission Criteria [facility] Guidelines: Admission for Medically Managed Detox: Requires at least one of the followin. CIWA greater than 12 2. Seizures within the past 24 hours 3. Delirium tremens within the past 24 hours 4. Hallucinations within the past 24 hours 5. Acute intervention needed for co occurring medical disorder 6. Acute intervention needed for co occurring psychiatric disorder 7. Severe withdrawal that cannot be handled at a lower level of care (continued vomiting, continued diarrhea, abnormal vital signs) requiring intravenous medication and/or fluids 8. Patient presents the following: CIWA greater than 12 Admission Criteria Met: Admission criteria met Admission ROS [facility] Chief Complaint: Here because I'm having heroin and alcohol withdrawal. Allergies/Adverse Reactions: Allergies Allergy/AdvReac Type Severity Reaction Status Date / Time No Known Allergies Allergy Verified 03/09/18 13:18 History of Present Illness: Here for heroin and alcohol detox. Alcohol use since age 14. Marijuana/K2 use since age 19. Heroin use since age 24. Nicotine use since age 21. Hx seeing lights flashing and blackouts. Denies seizures or overdoses. Denies hallucinations. C/o foot pain. Denies significant PMH/PSH. Having angry outbursts. Denies mental health hx. issues though hx of being on mental health meds in past. States here for drugs and alcohol not psych. Search Terms: Marques Valenzuela, 1975 Search Date: 03/09/2018 01:59:20 PM The Drug Utilization Report below displays all of the controlled substance prescriptions, if any, that your patient has filled in the last twelve months. The information displayed on this report is compiled from pharmacy submissions to the Department, and accurately reflects the information as submitted by the pharmacies. This report was requested by: Jaylyn Hoffmann | Reference #: [id number] There are no results for the search terms that you entered. Exam Limitations: No Limitations - Ebola screening Have you traveled outside of the country in the last 21 days: No Have you had contact with anyone from an Ebola affected area: No Have you been sick,other than usual withdrawal symptoms: No Do you have a fever: No - Review of Systems Constitutional: Diaphoresis EENT: reports: Blurred Vision, Nose Congestion Respiratory: reports: No Symptoms reported Cardiac: reports: No Symptoms Reported GI: reports: Nausea, Vomiting : reports: No Symptoms Reported Musculoskeletal: reports: No Symptoms Reported Integumentary: reports: No Symptoms Reported Neuro: reports: Tremors Endocrine: reports: No Symptoms Reported Hematology: reports: No Symptoms Reported Psychiatric: reports: Agitated, Anxious, Disorientated (Unsure of date/year) Patient History - Patient Medical History Hx Anemia: No Hx Asthma: No Hx Chronic Obstructive Pulmonary Disease (COPD): No Hx Cancer: No Hx Cardiac Disorders: No Hx Congestive Heart Failure: No Hx Hypertension: No Hx Hypercholesterolemia: No Hx Pacemaker: No HX Cerebrovascular Accident: No Hx Seizures: No Hx Dementia: No Hx Diabetes: No Hx Gastrointestinal Disorders: No Hx Liver Disease: No Hx Genitourinary Disorders: No Hx Sexually Transmitted Disorders: No Hx Renal Disease (ESRD): No Hx Thyroid Disease: No Hx Human Immunodeficiency Virus (HIV): No Hx Hepatitis C: Yes Hx Depression: Yes Hx Suicide Attempt: No Hx Bipolar Disorder: Yes (Denies current thoughts of suicide or violent ideation. ) Hx Schizophrenia: No - Patient Surgical History Past Surgical History: No Hx Neurologic Surgery: No Hx Cataract Extraction: No Hx Cardiac Surgery: No Hx Lung Surgery: No Hx Breast Surgery: No Hx Breast Biopsy: No Hx Abdominal Surgery: No Hx Appendectomy: No Hx Cholecystectomy: No Hx Genitourinary Surgery: No Hx Section: No Hx Orthopedic Surgery: No Anesthesia Reaction: No - PPD History Previous Implant?: Yes Documented Results: Positive w/proof Implanted On Prior R Admission?: Yes Date: 07/14/17 (CXR - negative 07/15/17) Results: 10 mm PPD to be Administered?: No - Smoking Cessation Smoking history: Current every day smoker Have you smoked in the past 12 months: Yes Aproximately how many cigarettes per day: 20 Hx Chewing Tobacco Use: No Initiated information on smoking cessation: Yes 'Breaking Loose' booklet given: 03/09/18 - Substance & Tx. History Hx Alcohol Use: Yes Hx Substance Use: Yes Substance Use Type: Alcohol, Heroin, Marijuana Hx Substance Use Treatment: Yes (detox, rehab) - Substances Abused Heroin Route: Injection Frequency: Daily Amount used: 3 bags Age of first use: 24 Date of Last Use: 03/09/18 k2/Marijuana Route: Smoking Frequency: 3-6 times per week Amount used: $5 Age of first use: 19 Date of Last Use: 03/08/18 Alcohol-vodka Route: Oral Frequency: Daily Amount used: 3 pts. Age of first use: 14 Date of Last Use: 03/08/18 Family Disease History - Family Disease History Family Disease History: Diabetes: Father, Heart Disease: Mother Admission Physical Exam [facility] - Vital Signs Vital Signs: Vital Signs - 24 hr 03/09/18 13:17 Temperature 96.2 F L Pulse Rate 77 Respiratory 18 Rate Blood Pressure 120/75 - Physical General Appearance: Yes: Disheveled (Dried feces on feet and between toes.), Moderate Distress, Tremorous, Irritable, Sweating, Anxious HEENTM: Yes: EOMI, Hearing grossly Normal, Normocephalic, JUMANA (Pupils = 5 mm), Pharynx Normal, Nasal Congestion Respiratory: Yes: Lungs Clear, Normal Breath Sounds, No Respiratory Distress Neck: Yes: No masses,lesions,Nodules, Supple Breast: Yes: Breast Exam Deferred Cardiology: Yes: Regular Rhythm, Regular Rate, S1, S2 Abdominal: Yes: Soft, Increased Bowel Sounds, Tenderness (Mid abd tenderness upon deep palpation. No masses. No rebound tenderness. No guarding.) Genitourinary: Yes: Within Normal Limits Back: Yes: Normal Inspection Musculoskeletal: Yes: full range of Motion, Gait Steady Extremities: Yes: Normal Capillary Refill, Normal Range of Motion, Tremors (of hands at rest and increases when arms extended), Pedal Edema (Bilateral pedal edema toes to heels. Tenderness of toes when pressed. Pedal pulses present. 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 No increased warmth or erythema.), Other (Superficial friction-like abraisions transmetatarsal area of both feet.) Lymphatic: Yes: Within Normal Limits - Diagnostic (1) Alcohol dependence with uncomplicated withdrawal Current Visit: Yes Status: Acute (2) Opioid dependence with withdrawal Current Visit: Yes Status: Acute (3) Nicotine dependence Current Visit: Yes Status: Chronic Qualifiers: Nicotine product type: cigarettes Substance use status: in withdrawal Qualified Code(s): F17.213 - Nicotine dependence, cigarettes, with withdrawal (4) Tinea pedis Current Visit: Yes Status: Chronic Qualifiers: Laterality: bilateral Qualified Code(s): B35.3 - Tinea pedis (5) Foot abrasion Current Visit: Yes Status: Acute Qualifiers: Encounter type: initial encounter Laterality: unspecified laterality Qualified Code(s): S90.819A - Abrasion, unspecified foot, initial encounter Comment: Superfical friction-like abrasions both transmetatarsal areas w/o drainage. (6) Marijuana dependence Current Visit: Yes Status: Chronic Comment: Also uses K2 Cleared for Admission S - Detox or Rehab [facility] Level of Care: Medically Managed Detox Regimen/Protocol: Methadone/Librium [facility] Breath Alcohol Content Breath Alcohol Content: 0 Urine Drug Screen - Results Drug Screen Negative: No Urine Drug Screen Results: OPI-Opiates"
[2018-03-09] MEDS ORDERED: IBUPROFEN 400 MG TABLET (FP) PO PRN (15:21)
[2018-03-09] MEDS ORDERED: MAGNESIUM CITRATE 300 ML BOTTLE PO PRN (15:21)
[2018-03-09] MEDS ORDERED: MAG HYDROX/AL HYDROX/SIMETH 30 ML UNIT-DOSE CUP PO PRN (15:21)
[2018-03-09] MEDS ORDERED: MAGNESIUM HYDROX 2400MG/30ML ORAL SUSPENSION 30 ML CUP PO PRN (15:21)
[2018-03-09] MEDS ORDERED: MENTHOL/PHENOL 1 EACH UD MM PRN (15:21)
[2018-03-09] MEDS ORDERED: ACETAMINOPHEN 325 MG TABLET (FP) PO PRN (15:21)
[2018-03-09] MEDS ORDERED: NICOTINE POLACRILEX 2 MG GUM BC PRN (15:21)
[2018-03-09] MEDS ORDERED: LOPERAMIDE HCL 2 MG CAPSULE PO PRN (15:21)
[2018-03-09] MEDS ORDERED: chlordiazePOXIDE HCL 25 MG CAPSULE PO PRN (15:21)
[2018-03-09] MEDS ORDERED: METHADONE HCL 10 MG TABLET (FOR DETOX USE ONLY) PO ONE ×2 (16:00→23:00)
[2018-03-09] MEDS ORDERED: chlordiazePOXIDE HCL 25 MG CAPSULE PO SCH (17:00)
[2018-03-09 17:10] VITALS: BP 116/61; PULSE 78; TEMP 98.1
--- NOTE | 2018-03-09 21:53 | DS ---
[facility] Detox Discharge Summary Admission Date: 03/09/18 Discharge Date: 03/09/18 (AMA) - History Present History: Alcohol Dependence, Cannabis Dependence, Opioid Dependence, K 2 Additional Comments: Admitted for alcohol and heroin withdrawal. Pertinent Past History: Alcohol use since age 14. Marijuana/K2 use since age 19. Heroin use since age 24. Nicotine use since age 21. Hx seeing lights flashing and blackouts. Denies hallucinations. - Physical Exam Results Vital Signs: Vital Signs Temperature 98.1 F 03/09/18 16:05 Pulse Rate 78 03/09/18 16:05 Respiratory Rate 18 03/09/18 16:05 Blood Pressure 116/61 03/09/18 16:05 O2 Sat by Pulse Oximetry (%) Pertinent Admission Physical Exam Findings: Admitted for alcohol and opiate detox. Having angry outbursts. Denies mental health hx. issues though hx of being on mental health meds in past. Patient did not stay long enough for labs to be processed. - Medication Discharge Medications: Ambulatory Orders Benztropine Mesylate [Cogentin -] 0.5 mg PO BID #60 tablet 07/21/17 Risperidone [Risperdal -] 1 mg PO BID #60 tablet 07/21/17 traZODone HCL [Desyrel -] 50 mg PO HS #30 tablet 10/30/17 - Diagnosis (1) Alcohol dependence with uncomplicated withdrawal Status: Acute (2) Foot abrasion Status: Acute Qualifiers: Encounter type: initial encounter Laterality: unspecified laterality Qualified Code(s): S90.819A - Abrasion, unspecified foot, initial encounter (3) Opioid dependence with withdrawal Status: Acute (4) Marijuana dependence Status: Chronic (5) Nicotine dependence Status: Chronic Qualifiers: Nicotine product type: cigarettes Substance use status: in withdrawal Qualified Code(s): F17.213 - Nicotine dependence, cigarettes, with withdrawal (6) Tinea pedis Status: Chronic Qualifiers: Laterality: bilateral Qualified Code(s): B35.3 - Tinea pedis - AMA Did Patient Leave Against Medical Advice: Yes (Left AMA within 2 hrs of admission w/o waiting for provider. )
[2018-03-09] MEDS ORDERED: MELATONIN 5 MG TABLETS PO PRN (22:00)
[2018-03-09] MEDS ORDERED: THIAMINE HCL 100 MG TABLET (FP) PO SCH (22:00)
[2018-03-09] MEDS ORDERED: TOLNAFTATE 1% POWDER 45 GM POW TP SCH (22:00)
[2018-03-09] MEDS ORDERED: BACITRACIN 0.9 GM PACKET TP SCH (22:00)
[2018-03-10] MEDS ORDERED: PRENATAL VITAMINS W/ FOLIC ACID TABLET (FP) PO SCH (10:00)
[2018-03-10] MEDS ORDERED: NICOTINE 21 MG/24 HOURS TOPICAL PATCH TD SCH (10:00)
[2018-03-10] MEDS ORDERED: METHADONE HCL 10 MG TABLET (FOR DETOX USE ONLY) PO SCH (10:00)
[2018-03-10] MEDS ORDERED: chlordiazePOXIDE HCL 25 MG CAPSULE PO SCH (17:00)
[2018-03-11] MEDS ORDERED: METHADONE HCL 5 MG TABLET (FOR DETOX USE ONLY) PO SCH (10:00)
[2018-03-11] MEDS ORDERED: chlordiazePOXIDE 5 MG CAPSULE PO SCH (17:00)
[2018-03-12] MEDS ORDERED: chlordiazePOXIDE HCL 10 MG CAPSULE PO SCH (17:00)
[2018-03-13] MEDS ORDERED: METHADONE HCL 10 MG TABLET (FOR DETOX USE ONLY) PO SCH (10:00)
[2018-03-14] MEDS ORDERED: METHADONE HCL 5 MG TABLET (FOR DETOX USE ONLY) PO SCH (06:00)
== END 2018-03-09 16:38 | disposition left against medical advice (07) | DRG 770 ==
LOC: YASAS 11:28 → Y6N 15:23
PROC: HZ2ZZZZ Detoxification Services for Substance Abuse Treatment (ICD-10-PCS; principal; 2018-03-09)
DX: F11.23 Opioid dependence with withdrawal (principal); F10.230 Alcohol dependence with withdrawal, uncomplicated; F12.20 Cannabis dependence, uncomplicated; F17.213 Nicotine dependence, cigarettes, with withdrawal; B35.3 Tinea pedis; Z59.0 Homelessness

== ENCOUNTER 2020-10-16 15:22 | Inpatient (IN) | payer OTHER ==
[2020-10-16] MEDS ORDERED: MENTHOL/PHENOL 1 EACH UD MM PRN (18:03)
[2020-10-16] MEDS ORDERED: ACETAMINOPHEN 325 MG TABLET (FP) PO PRN ×2 (18:03)
[2020-10-16] MEDS ORDERED: ONDANSETRON *ODT* 4 MG TABLET SL PRN (18:03)
[2020-10-16] MEDS ORDERED: IBUPROFEN 400 MG TABLET (FP) PO PRN (18:03)
[2020-10-16] MEDS ORDERED: BISMUTH SUBSALICYLATE 524 MG/30 ML PO PRN (18:03)
[2020-10-16] MEDS ORDERED: NICOTINE POLACRILEX 2 MG GUM BUC PRN (18:03)
[2020-10-16] MEDS ORDERED: MAGNESIUM CITRATE 300 ML BOTTLE PO PRN (18:03)
[2020-10-16] MEDS ORDERED: MAG HYDROX/AL HYDROX/SIMETH 30 ML UNIT-DOSE CUP PO PRN (18:03)
[2020-10-16] MEDS ORDERED: MAGNESIUM HYDROX 2400MG/30ML ORAL SUSPENSION 30 ML CUP PO PRN (18:03)
[2020-10-16 20:00] VITALS: BMI 26.4
[2020-10-17] MEDS: MELATONIN 5 MG TABLETS PO SCH ×2 (00:19→22:13)
[2020-10-17] MEDS: THIAMINE HCL 100 MG TABLET (FP) PO SCH ×2 (00:20→22:13)
[2020-10-17] MEDS: PRENATAL VITAMINS W/ FOLIC ACID TABLET (FP) PO SCH (10:06)
[2020-10-17] MEDS: NICOTINE 14 MG/24 HOURS TOPICAL PATCH TD SCH (10:06)
[2020-10-17 10:32] LABS: HEMATOCRIT 37.7 % (35.4-49); HEMOGLOBIN 12.5 GM/dL (11.7-16.9); MCH 30.9 pg (25.7-33.7); MCHC 33.1 g/dl (32.0-35.9); MEAN CELL VOLUME 93.2 fl (80-96); MEAN PLT VOLUME 8.7 fl (7.5-11.1); PLATELET COUNT 163 10^3/uL (134-434); RBC 4.05 M/mm3 (4.00-5.60); RDW 16.2 % (11.9-15.9); WHITE BLOOD COUNT 5.3 K/mm3 (4.0-10.0)
[2020-10-17] MEDS ORDERED: methaDONE HCL 10 MG TABLET (FOR DETOX USE ONLY) PO ONE (10:59)
[2020-10-17] MEDS ORDERED: diazePAM 5 MG TABLET PO PRN (10:59)
[2020-10-17] MEDS ORDERED: cloNIDine HCL 0.1 MG TABLET PO PRN (10:59)
[2020-10-17 11:20] LABS: CALCIUM 8.5 mg/dL (8.5-10.1)
[2020-10-17 11:21] LABS: ALBUMIN 3.3 g/dl (3.4-5.0); BLOOD UREA NITROGEN 17.1 mg/dL (7-18)
[2020-10-17 11:24] LABS: CREATININE 0.8 mg/dL (0.55-1.3)
[2020-10-17 11:25] LABS: BILIRUBIN,TOTAL 0.2 mg/dL (0.2-1); TOT PROT 6.6 g/dl (6.4-8.2)
[2020-10-17 11:55] LABS: HIV INTERPRETATION NEGATIVE (NEGATIVE)
[2020-10-17] MEDS: diazePAM 5 MG TABLET PO SCH ×3 (12:35→22:12)
[2020-10-17] MEDS: risperiDONE 1 MG TABLET PO SCH ×2 (12:37→22:13)
[2020-10-17] MEDS: BENZTROPINE MESYLATE 1 MG TABLET PO SCH ×2 (12:38→22:13)
[2020-10-18] MEDS: diazePAM 5 MG TABLET PO SCH ×4 (06:03→23:32)
[2020-10-18] MEDS ORDERED: methaDONE HCL 10 MG TABLET (FOR DETOX USE ONLY) ONE (09:34)
[2020-10-18] MEDS: PRENATAL VITAMINS W/ FOLIC ACID TABLET (FP) PO SCH (10:34)
[2020-10-18] MEDS: BENZTROPINE MESYLATE 1 MG TABLET PO SCH ×2 (10:34→22:44)
[2020-10-18] MEDS: METHOCARBAMOL 500 MG TABLET PO PRN (10:35)
[2020-10-18] MEDS: risperiDONE 1 MG TABLET PO SCH ×2 (10:35→23:32)
[2020-10-18] MEDS: NICOTINE 14 MG/24 HOURS TOPICAL PATCH TD SCH (11:35)
[2020-10-18] MEDS ORDERED: NICOTINE 10 MG CARTRIDGE (INHALER) IH PRN (12:31)
[2020-10-18] MEDS: THIAMINE HCL 100 MG TABLET (FP) PO SCH (22:44)
[2020-10-18] MEDS: MELATONIN 5 MG TABLETS PO SCH (23:32)
[2020-10-19] MEDS: diazePAM 5 MG TABLET PO SCH ×3 (07:09→22:43)
[2020-10-19] MEDS ORDERED: methaDONE HCL 10 MG TABLET (FOR DETOX USE ONLY) PO ONE (10:00)
[2020-10-19] MEDS: NICOTINE 14 MG/24 HOURS TOPICAL PATCH TD SCH (10:41)
[2020-10-19] MEDS: risperiDONE 1 MG TABLET PO SCH ×2 (10:41→22:40)
[2020-10-19] MEDS: BENZTROPINE MESYLATE 1 MG TABLET PO SCH ×2 (10:41→22:40)
[2020-10-19] MEDS: METHOCARBAMOL 500 MG TABLET PO PRN (10:41)
[2020-10-19] MEDS: PRENATAL VITAMINS W/ FOLIC ACID TABLET (FP) PO SCH (10:41)
[2020-10-19] MEDS: THIAMINE HCL 100 MG TABLET (FP) PO SCH (22:41)
[2020-10-19] MEDS: MELATONIN 5 MG TABLETS PO SCH (23:04)
[2020-10-20] MEDS: diazePAM 5 MG TABLET PO SCH ×2 (07:35→18:18)
[2020-10-20] MEDS: risperiDONE 1 MG TABLET PO SCH ×2 (10:30→23:28)
[2020-10-20] MEDS: BENZTROPINE MESYLATE 1 MG TABLET PO SCH ×2 (10:30→23:21)
[2020-10-20] MEDS: PRENATAL VITAMINS W/ FOLIC ACID TABLET (FP) PO SCH (10:30)
[2020-10-20] MEDS: NICOTINE 14 MG/24 HOURS TOPICAL PATCH TD SCH (10:31)
[2020-10-20] MEDS: THIAMINE HCL 100 MG TABLET (FP) PO SCH (23:22)
[2020-10-20] MEDS: MELATONIN 5 MG TABLETS PO SCH (23:22)
[2020-10-21] MEDS ORDERED: diazePAM 5 MG TABLET PO ONE (06:00)
[2020-10-21 09:53] VITALS: BP 110/62; PULSE 70; TEMP 97.5
[2020-10-21] MEDS ORDERED: methaDONE HCL 10 MG TABLET (FOR DETOX USE ONLY) PO ONE (10:00)
[2020-10-21] MEDS: PRENATAL VITAMINS W/ FOLIC ACID TABLET (FP) PO SCH (10:22)
[2020-10-21] MEDS: BENZTROPINE MESYLATE 1 MG TABLET PO SCH (10:22)
[2020-10-21] MEDS: risperiDONE 1 MG TABLET PO SCH (10:22)
[2020-10-21] MEDS: NICOTINE 14 MG/24 HOURS TOPICAL PATCH TD SCH (10:23)
== END 2020-10-21 12:19 | disposition home or self-care (01) | DRG 773 ==
LOC: YASAS 15:22 → Y3N 21:25
PROVIDERS: ADMIT Allergy & Immunology; ATTEND Allergy & Immunology
PROC: HZ2ZZZZ Detoxification Services for Substance Abuse Treatment (ICD-10-PCS; principal; 2020-10-16)
DX: F11.23 Opioid dependence with withdrawal (principal); F10.230 Alcohol dependence with withdrawal, uncomplicated; F17.210 Nicotine dependence, cigarettes, uncomplicated; F25.9 Schizoaffective disorder, unspecified; F31.9 Bipolar disorder, unspecified; F19.24 Other psychoactive substance dependence with psychoactive substance-induced mood disorder; F19.282 Other psychoactive substance dependence with psychoactive substance-induced sleep disorder; F41.9 Anxiety disorder, unspecified; J45.20 Mild intermittent asthma, uncomplicated; B18.2 Chronic viral hepatitis C; R73.9 Hyperglycemia, unspecified; R77.0 Abnormality of albumin; R41.82 Altered mental status, unspecified; K21.9 Gastro-esophageal reflux disease without esophagitis; Z56.0 Unemployment, unspecified; Z59.0 Homelessness
CPT/HCPCS: 36415; 71046-TC-FY; 80053; 82140; 85027; 86780; 87389; 93005; 93010; C9803; J2794; U0003; U0005